=== PATIENT | female | born 1975 | race Caucasian/White ===

== ENCOUNTER → 2019-05-31 15:21 | Outpatient (CLI) | payer OTHER, SELFPAY ==
--- NOTE | ~2019-05-31 | US_ITS ---
EXAMINATION: US pelvic complete DATE: 05/31/2019 15:49 INDICATION: Enlarged uterus TECHNIQUE: Multiple transabdominal sonographic images of the pelvis were obtained. COMPARISON: 09/17/2017 FINDINGS: The uterus measures 11.2 x 5.9 x 7.7 cm, previously 12.4 x 6.0 x 7.8 cm. The endometrial co mplex measures 11 mm. The right ovary measures 3.4 x 2.4 x 2.7 cm. The left ovary measures 2.8 x 1.6 x 2.7 cm. There is normal vascular flow in the ovaries. There is no free fluid in the pelvis. IMPRESSION: 1. No sonographic correlate for the patient's symptoms. Reviewed, dictated and finalized at location A. ORDER CLERK
== END ==
PROVIDERS: PCP Internal Medicine; Visit Provider Obstetrics & Gynecology
DX: N85.2 Hypertrophy of uterus (principal)
CPT/HCPCS: 76856

== ENCOUNTER 2020-03-17 17:28 | Emergency (ER) | payer OTHER, SELFPAY ==
--- NOTE | 2020-03-17 17:33 | ED.GENADULT ---
HPI - General Adult General Chief complaint: Extremity Injury, Upper Stated complaint: R/hand injury Time Seen by Provider: 03/17/20 17:33 Source: patient Mode of arrival: ambulatory Limitations: no limitations History of Present Illness HPI narrative: 44-year-old female patient presents to the [facility] with complaints of wound to the right hand of the index finger. Patient states a week ago she was feeding her dog tree and he excellently cut it nipped at her finger. Patient states that she thought it was getting better however the last 2 days especially with recent cooking the finger pain has been getting worse and has what appears to be some swelling, redness and little discharge along the side of the nail of the right index finger. Denies any fevers, body aches or chills. Patient states that her last tetanus was in 2011 that she can remember. Patient states the dog is up-to-date on shots. Related Data Home Medications Medication Instructions Recorded Confirmed dulaglutide [Trulicity] 0.75 mg SUBCUT WEEKLY 03/17/20 03/17/20 pravastatin 20 mg PO DAILY 03/17/20 03/17/20 Allergies Allergy/AdvReac Type Severity Reaction Status Date / Time Penicillins Allergy Intermediate FACIAL Verified 03/17/20 17:56 SWELLING/HIVES progesterone Allergy Mild RASH Verified 03/17/20 17:56 iohexol Allergy Swelling Verified 03/17/20 18:01 [From contrast - CT, X-RAY] lisinopril Allergy Rash Verified 03/17/20 17:46 meloxicam [From Mobic] Allergy Swelling Verified 03/17/20 18:00 Review of Systems Review of Systems: Narrative: CONSTITUTIONAL: Denies fever, chills, or sweats. EYES: Denies visual changes, redness, or discharge. ENT: Denies rhinorrhea, congestion, sore throat, or otalgia. CARDIOVASCULAR: Denies chest pain, palpitations, or edema. RESPIRATORY: Denies cough or dyspnea. GASTROINTESTINAL: Denies abdominal pain, nausea, vomiting, or diarrhea. GENITOURINARY: Denies dysuria or hematuria. SKIN: Denies rash or itching. Positive wound to right index finger MUSCULOSKELETAL: Denies back pain, joint pain, or myalgia. NEUROLOGIC: Denies headache, numbness, or weakness. PSYCHIATRIC: Denies anxiety or depression. [facility] Past Medical History Medical History (Updated 03/17/20 @ 18:02 by MAXIMILIANO Love) Abnormal uterine bleeding Depression Hypertension Migraine Tachycardia Urinary tract infection Surgical History Surgical History (Updated 03/17/20 @ 18:02 by MAXIMILIANO Love) History of appendectomy Family History Family History (Updated 03/17/20 @ 18:03 by MAXIMILIANO Love) Other Diabetes mellitus Heart disease Hypertension Social History Social History (Updated 03/17/20 @ 18:02 by MAXIMILIANO Love) Alcohol intake: current Alcohol use details: Weekly alcohol consumption Comments At the time of my signature I agree with nursing past medical history, surgical, social, and family history. There is no relevant family history pertinent to the presenting complaint. Exam Narrative: Exam Narrative: GENERAL: Well-appearing, well-nourished, and in no acute distress. HEAD: Normocephalic, atraumatic. EYES: PERRLA and EOMI. ENT: Nares clear, no rhinorrhea or epistaxis. Mucous membranes moist. NECK: Supple. No lymphadenopathy CHEST: Clear to auscultation. No respiratory distress. HEART: Regular rate and rhythm. No murmur heard. Normal peripheral pulses. ABDOMEN: Soft, nontender, nondistended, normal active bowel sounds. EXTREMITIES: Normal range of motion. No edema. SKIN: Warm, dry, no rash. Patient has some swelling, tenderness and erythema noted along the lateral side of the nail on the right index finger. It does appear to have a little bit of yellow pus that was there but is not actively draining at this time. Patient has excellent range of motion to the fingers and good pulses present. NEURO: No focal deficits. Alert and oriented x3. Course Vital Signs Vital signs: Vital Signs
[2020-03-17 17:48] VITALS: BP 161/112; PULSE 68; RESP 20; TEMP 36.8; O2SAT 100
[2020-03-17] MEDS: TETANUS,DIPHTHERIA,AC PERTUSSIS ADULT (0.5 ML) BOOSTRIX IM (17:57)
== END 2020-03-17 18:10 | disposition home or self-care (01) ==
PROVIDERS: Emergency Provider Nurse Practitioner Family; PCP Internal Medicine
DX: L03.011 Cellulitis of right finger (principal); I10 Essential (primary) hypertension; Z23 Encounter for immunization
CPT/HCPCS: 90471; 90715; 99213; G0463

== ENCOUNTER → 2020-06-07 13:10 | Outpatient (CLI) | payer OTHER, SELFPAY ==
--- NOTE | ~2020-06-07 | MM_ITS ---
EXAMINATION: MM screening dinorah BI w rima HISTORY: Screening TECHNIQUE: Craniocaudal and mediolateral oblique 3-D tomosynthesis images were obtained and synthetic 2-D images were generated. CAD analysis was submitted and interpreted. COMPARISON: Comparison to multiple prior studies sequentially, with oldest reviewed study dated 2014 BREAST PARENCHYMAL COMPOSITION: There are scattered areas of fibroglandular density. FINDINGS: There is no evidence of suspicious mass, calcification, or architectural distortion to sugg est malignancy in either breast. There has been no suspicious interval change. IMPRESSION: 1. No mammographic evidence of malignancy. 2. Recommend routine screening mammography in one year. BI-RADS Category 1: Negative Reviewed, dictated and finalized at location A. T MARKETING MANAGER
== END ==
PROVIDERS: PCP Internal Medicine; Visit Provider Obstetrics & Gynecology Gynecology
DX: Z12.31 Encounter for screening mammogram for malignant neoplasm of breast (principal)
CPT/HCPCS: 77063; 77067

== ENCOUNTER → 2020-08-09 18:03 | Outpatient (CLI) | payer OTHER, SELFPAY ==
--- NOTE | ~2020-08-09 | XR_ITS ---
EXAMINATION: XR chest 2V 08/09/2020 18:55 INDICATION: Cough PROCEDURE: 2 view chest COMPARISON: No prior studies for comparison. FINDINGS: The lungs are clear. The cardiomediastinal silhouette is within normal limits. There are no pleural effusions. There is no pneumothorax suspected. IMPRESSION: 1: NO ACUTE CARDIOPULMONARY DISEASE. Reviewed, dictated and finalized at location A.
== END ==
PROVIDERS: PCP Internal Medicine; Visit Provider Internal Medicine
DX: R05 Cough (principal)
CPT/HCPCS: 71046

== ENCOUNTER → 2021-06-28 16:07 | Outpatient (CLI) | payer OTHER, SELFPAY ==
--- NOTE | ~2021-06-28 | MM_ITS ---
EXAMINATION: MM screening dinorah BI w rima HISTORY: Screening TECHNIQUE: Craniocaudal and mediolateral oblique 3-D tomosynthesis images were obtained and synthetic 2-D images were generated. CAD analysis was submitted and interpreted. COMPARISON: Comparison to multiple prior studies sequentially, with oldest reviewed study dated 05/03. BREAST PARENCHYMAL COMPOSITION: The breasts are heterogeneously dense, which may obscure small masses . FINDINGS: There is no evidence of suspicious mass, calcification, or architectural distortion to sugg est malignancy in either breast. There has been no suspicious interval change. IMPRESSION: 1. No mammographic evidence of malignancy. 2. Recommend routine screening mammography in one year. BI-RADS Category 1: Negative Reviewed, dictated and finalized at location A. ITY CONTROL ASSESSOR
== END ==
PROVIDERS: PCP Internal Medicine; Visit Provider Nurse Practitioner
DX: Z12.31 Encounter for screening mammogram for malignant neoplasm of breast (principal)
CPT/HCPCS: 77063; 77067

== ENCOUNTER → 2021-07-02 13:40 | Outpatient (CLI) | payer OTHER, SELFPAY ==
--- NOTE | ~2021-07-02 | US_ITS ---
EXAMINATION: US pelvic complete DATE: 07/02/2021 14:33 INDICATION: Right lower quadrant pain Comparison:Pelvic pain TECHNIQUE: Multiple transabdominal and endovaginal sonographic images of the pelvis performed. FINDINGS: The uterus measures 11.2 x 5.9 x 6.9 cm. The endometrial complex measures 7 mm. The right ovary measures 2.2 x 1.4 x 2 cm and the left ovary measures 2.4 x 1.3 x 2 cm. There are sm all follicles in each ovary. Normal doppler signal in both ovaries. There is no free fluid in the pelvis. There are no abnormal masses seen on either side. IMPRESSION: 1. Unremarkable pelvic ultrasound. Reviewed, dictated and finalized at location B.
== END ==
PROVIDERS: Visit Provider Obstetrics & Gynecology Gynecology
DX: R10.2 Pelvic and perineal pain (principal)
CPT/HCPCS: 76856

== ENCOUNTER → 2021-10-04 09:10 | Outpatient (CLI) | payer OTHER, SELFPAY ==
--- NOTE | ~2021-10-04 | US_ITS ---
US breast BI complete INDICATION: Dense breasts. TECHNIQUE: Dedicated complete bilateral breast ultrasound including all 4 quadrants and the subareola r locations. COMPARISON: Mammogram dated 06/28/2021 FINDINGS: Right breast: At 3:00, 5 cm from the nipple there is a an irregular shaped hypoechoic mass with antip arallel configuration measuring 4 x 4 x 3 mm. No internal vascularity. There is posterior shadowing. At 5:00, 3 cm from the nipple there is a 5 mm cyst. Left breast: At 1:00, 5 cm from the nipple there is a 5 mm cyst. Also at this location there is a 7 m m cyst. At 2:00, 7 cm from the nipple there is a 5 mm cyst. IMPRESSION: 1: Slightly irregular hypoechoic right breast mass at 3:00, 5 cm from the nipple with antiparallel co nfiguration and posterior shadowing measuring 4 mm. No corresponding abnormality is identified by dinorah mography. BI-RADS CATEGORY 4-SUSPICIOUS ABNORMALITY RECOMMENDATION: Ultrasound-guided right breast biopsy recommended. Reviewed, dictated and finalized at location A. IMPRESSION: 1: Slightly irregular hypoechoic right breast mass at 3:00, 5 cm from the nippl e with antiparallel configuration and posterior shadowing measuring 4 mm. No co rresponding abnormality is identified by mammography. BI-RADS CATEGORY 4-SUSPICIOUS ABNORMALITY RECOMMENDATION: Ultrasound-guided right breast biopsy recommended.
== END ==
PROVIDERS: PCP Internal Medicine; Visit Provider Nurse Practitioner
DX: R92.8 Other abnormal and inconclusive findings on diagnostic imaging of breast (principal)
CPT/HCPCS: 76641

== ENCOUNTER 2022-03-11 11:39 | Emergency (ER) | payer OTHER, SELFPAY ==
[2022-03-11 12:17] VITALS: BP 120/94; PULSE 86; RESP 18; TEMP 36.6; O2SAT 100
--- NOTE | 2022-03-11 13:07 | ED.URI ---
HPI - URI/Sore Throat General Chief Complaint: Upper Respiratory Infection Stated Complaint: congestion,cough Time Seen by Provider: 03/11/22 13:07 Source: patient and RN notes reviewed Mode of arrival: ambulatory Limitations: no limitations History of Present Illness HPI Narrative: 46-year-old female presenting for complaint of sinus congestion and drainage, fatigue, left lymph node swelling, cough, and bilateral ear pressure for 2 days. Endorses chills. She is not taking anything for symptoms. Denies shortness of breath, wheezing, nausea, vomiting diarrhea. 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 MD elicited complaint: cough Related Data Home Medications Medication Instructions Recorded Confirmed dulaglutide 0.75 mg/0.5 mL 0.75 mg subcut WEEKLY 03/17/20 03/11/22 subcutaneous pen injector (Trulicity) pravastatin 20 mg tablet 20 mg PO DAILY 03/17/20 03/11/22 B cplx 4-vit D3 1,750 unit-C 60 1 tablet PO DAILY 03/11/22 03/11/22 mg-folic acid 1 mg-zinc 12.5 mg tablet amlodipine 2.5 mg tablet 2.5 mg PO DAILY 03/11/22 03/11/22 bupropion HCl 75 mg tablet 75 mg PO DAILY 03/11/22 03/11/22 fish [id number] C-vit E 2,000 1 g PO DAILY 03/11/22 03/11/22 mg-650 mg-12 mg/2.5 g emulsion packt nebivolol 2.5 mg tablet 5 mg PO DAILY 03/11/22 03/11/22 Allergies Allergy/AdvReac Type Severity Reaction Status Date / Time Penicillins Allergy Intermediate FACIAL Verified 03/11/22 12:49 SWELLING/HIVES progesterone Allergy Mild RASH Verified 03/11/22 12:49 iohexol Allergy Swelling Verified 03/11/22 12:49 [From contrast - CT, X-RAY] lisinopril Allergy Rash Verified 03/11/22 12:49 meloxicam [From Mobic] Allergy Swelling Verified 03/11/22 12:49 Review of Systems Review of Systems: ROS per HPI PMFSH Past Medical History Medical History Abnormal uterine bleeding Depression Hypertension Migraine Tachycardia Urinary tract infection Surgical History Surgical History History of appendectomy Family History Family History Other Diabetes mellitus Heart disease Hypertension Social History Social History Alcohol intake: current Alcohol use details: Weekly alcohol consumption Exam Narrative: GENERAL: Ill-appearing, nontoxic EYES: PERRLA, conjunctivae clear ENT: Mucous membranes moist. TMs pearly wilcox with dull light reflex bilaterally; no tragal tenderness. Oropharynx erythematous without lesions or exudate, no drooling, no hoarseness, no trismus, uvula midline. NECK: Supple. Left anterior cervical lymphadenopathy CHEST: Clear to auscultation, breath sounds equal. HEART: Regular rate and rhythm. No murmur heard. SKIN: Warm, dry, no rash. NEURO: Alert and oriented x3. PSYCH: Normal mood and affect Course Course Emergency Course: Patient is aware of diagnosis, understands and agrees to treatment plan. Anticipatory guidance given. Patient agrees to follow-up as directed and is aware of reasons to seek care at the emergency department. Portions of this record may have been created with voice recognition software Level of Care: Express Care Visit Vital Signs Vital signs: Vital Signs Temperature 97.8 F 03/11/22 12:17 Pulse Rate 86 03/11/22 12:17 Respiratory Rate 18 03/11/22 12:17 Blood Pressure 120/94 H 03/11/22 12:17 Pulse Oximetry 100 03/11/22 12:17 Oxygen Delivery Room Air 03/11/22 12:17 Temperature 97.8 F 03/11/22 12:17 Pulse Rate 86 03/11/22 12:17 Respiratory Rate 18 03/11/22 12:17 Blood Pressure 120/94 H 03/11/22 12:17 Pulse Oximetry 100 03/11/22 12:17 Oxygen Delivery Room Air 03/11/22 12:17 reviewed MDM - URI/Sore Throat MDM Narrative Medical decision making narrative: KARAN positi
== END 2022-03-11 13:30 | disposition home or self-care (01) ==
PROVIDERS: Emergency Provider Nurse Practitioner Family; PCP Internal Medicine
DX: U07.1 COVID-19 (principal); I10 Essential (primary) hypertension; F32.A Depression, unspecified
CPT/HCPCS: 87081; 87426; 87804; 87880; 99213; C9803; G0463

== ENCOUNTER 2022-08-07 16:21 | Emergency (ER) | payer OTHER, SELFPAY ==
[2022-08-07 16:34] VITALS: BP 107/77; PULSE 56; RESP 16; TEMP 36.4; O2SAT 98
--- NOTE | 2022-08-07 16:54 | ED.GENADULT ---
HPI - General Adult General Chief complaint: Ear Stated complaint: bilateral ear pain Time Seen by Provider: 08/07/22 16:40 Source: patient, RN notes reviewed and old records reviewed Mode of arrival: ambulatory Limitations: no limitations History of Present Illness HPI narrative: 47-year-old female who presents to [facility] with complaints of 3 day history bilateral ear discomfort with some itchiness and pain to her right ear which extends down her jaw with some tragal tenderness voiced on examination. Patient reports that she has some sore throat but is more scratchy type of discomfort, denies any fevers, chills or sweats or any body aches. MD complaint: ear pain, scratchy throat, right facial myalgia Onset (ago): day(s) (3) Severity scale (1-10): 6 Quality: aching Treatments prior to arrival: other (Tylenol) Related Data Home Medications Medication Instructions Recorded Confirmed pravastatin 20 mg tablet 20 mg PO DAILY 03/17/20 08/07/22 B cplx 4-vit D3 1,750 unit-C 60 1 tablet PO DAILY 03/11/22 08/07/22 mg-folic acid 1 mg-zinc 12.5 mg tablet amlodipine 2.5 mg tablet 2.5 mg PO DAILY 03/11/22 08/07/22 bupropion HCl 75 mg tablet 75 mg PO DAILY 03/11/22 08/07/22 fish [id number] C-vit E 2,000 1 g PO DAILY 03/11/22 08/07/22 mg-650 mg-12 mg/2.5 g emulsion packt nebivolol 2.5 mg tablet 5 mg PO DAILY 03/11/22 08/07/22 Allergies Allergy/AdvReac Type Severity Reaction Status Date / Time Penicillins Allergy Intermediate FACIAL Verified 08/07/22 16:44 SWELLING/HIVES progesterone Allergy Mild RASH Verified 08/07/22 16:44 iohexol Allergy Swelling Verified 08/07/22 16:44 [From contrast - CT, X-RAY] lisinopril Allergy Rash Verified 08/07/22 16:44 meloxicam [From Mobic] Allergy Swelling Verified 08/07/22 16:44 Review of Systems Review of Systems: CONSTITUTIONAL: Denies malaise, chills, sweats, or fever. EYES: Denies visual changes, redness, or discharge. ENT: Reports rhinorrhea, congestion, sinus pain,bilateral otalgia right greater that left with pain into jaw and sore throat. CARDIOVASCULAR: Denies chest pain, palpitations, or edema. RESPIRATORY: Reports no cough.? Denies dyspnea. GASTROINTESTINAL: Denies abdominal pain, nausea, vomiting, diarrhea SKIN: Denies rash or itching. MUSCULOSKELETAL: Denies myalgia. NEUROLOGIC: Denies headache. All systems reviewed & are unremarkable except as noted in HPI and below PMFSH Past Medical History Medical History Abnormal uterine bleeding Depression Hypertension Migraine Tachycardia Urinary tract infection Surgical History Surgical History History of appendectomy Family History Family History Other Diabetes mellitus Heart disease Hypertension Social History Social History (Updated 08/10/22 @ 10:49 by Josefina Duran NP) Smoking status: Never smoker Alcohol intake: current Alcohol use details: Weekly alcohol consumption Comments At time of signature, agree with nursing past medical, surgical, social and family history. There is no relevant family history pertinent to the presenting complaint Exam Narrative: GENERAL: Well-appearing, well-nourished, and in no acute distress. HEAD: Normocephalic EYES: PERRLA, conjunctivae clear ENT: Nares clear, turbinates edematous and erythematous, clear discharge. Mucous membranes moist. TM pearly wilcox with dull light reflex bilaterally; righttragal tenderness.right ear canal excoriated, Oropharynx erythematous without lesions. Tonsils enlarged no redness noted and without exudate, no drooling, no hoarseness, no trismus, uvula midline. NECK: Supple. No lymphadenopathy CHEST: Clear to auscultation, breath sounds equal. No wheezing, rhonchi, rales, or stridor. No respiratory distress, speaks in full sentences
== END 2022-08-07 17:20 | disposition home or self-care (01) ==
PROVIDERS: Emergency Provider Registered Nurse; PCP Internal Medicine
DX: H60.91 Unspecified otitis externa, right ear (principal); R51.9 Headache, unspecified; I10 Essential (primary) hypertension; F32.A Depression, unspecified
CPT/HCPCS: 87081; 87880; 99213; G0463

== ENCOUNTER → 2023-01-14 16:01 | Outpatient (CLI) | payer OTHER, SELFPAY ==
--- NOTE | ~2023-01-14 | MM_ITS ---
EXAMINATION: MM screening dinorah BI w rima HISTORY: Screening mammogram TECHNIQUE: Craniocaudal and mediolateral oblique 3-D tomosynthesis images were obtained and synthetic 2-D images were generated. CAD analysis was submitted and interpreted. COMPARISON: 10/04/2021 bilateral complete breast ultrasound examination 06/28/2021, 06/07/2020, 10/13/2018 bilateral screening mammogram examinations BREAST PARENCHYMAL COMPOSITION: There are scattered areas of fibroglandular density. FINDINGS: There is a biopsy marker in the right breast; history of benign breast biopsy in November 2. There is no evidence of suspicious mass, calcification, or architectural distortion to suggest mal ignancy in either breast. There has been no suspicious interval change. IMPRESSION: 1. No mammographic evidence of malignancy. 2. Recommend routine screening mammography in one year. BI-RADS Category 1: Negative Reviewed, dictated and finalized at location A.
== END ==
PROVIDERS: PCP Internal Medicine; Visit Provider Nurse Practitioner
DX: Z12.31 Encounter for screening mammogram for malignant neoplasm of breast (principal)
CPT/HCPCS: 77063; 77067

== ENCOUNTER 2023-03-01 08:26 | Emergency (ER) | payer OTHER, SELFPAY ==
[2023-03-01 08:38] VITALS: BP 122/81; PULSE 66; RESP 20; TEMP 36.7; O2SAT 98
[2023-03-01 08:55] VITALS: BP 115/80; PULSE 55; RESP 17; O2SAT 97
[2023-03-01 09:10] LABS: Basophils Percent Auto 0.4 % (0.2-1.2); Eosinophils Percent Auto 0.6 % (0-4.4); Hematocrit 40.4 % (37.0-47.0); Immature Granulocyte Absolute 0.01 K/mm3 (0.00-0.031); Immature Granulocyte Percent A 0.1 % (0-0.5); Lymphocytes Absolute Auto 2.35 K/mm3 (0.9-3.2); Mean Corpuscular HGB Conc 32.2 g/dl (32-36); Mean Corpuscular Hemoglobin 29.3 pg (26-34); Mean Corpuscular Volume 91.2 fl (80-100); Mean Platelet Volume 9.7 fl (7.4-10.4); Monocytes Absolute Auto 0.4 K/mm3 (0.1-0.6); Monocytes Percent Auto 5.8 % (2.6-8.5); Neutrophils Absolute Auto 4.3 K/mm3 (1.3-6.7); Neutrophils Percent Auto 60.1 % (45.5-73.1); Platelet Count Result 271 k/mm3 (150-375); Red Blood Count 4.43 M/mm3 (4.2-5.4); Red Cell Distribution Width 12.9 % (11.5-14.5); White Blood Count 7.1 K/mm3 (4.5-10.0)
[2023-03-01 09:18] LABS: Anion Gap 11 mmol/L (8-16); Blood Urea Nitrogen 18 mg/dL (7-17); Calcium 9.2 mg/dL (8.4-10.2); Carbon Dioxide 24 mmol/L (22-30); Chloride 105 mmol/L (98-107); Estimated CRCL calculation 82 ml/min; Estimated Glomerular Filt Rate > 60; Glucose 89 mg/dL (65-110); Potassium 4.1 mmol/L (3.4-5.0); Sodium 140 mmol/L (137-145)
[2023-03-01 09:35] VITALS: BP 101/67; PULSE 57; RESP 17; O2SAT 97
[2023-03-01 10:15] VITALS: BP 104/70; PULSE 60; RESP 15; O2SAT 98
--- NOTE | 2023-03-01 11:26 | ED.FEMALEGU ---
HPI - Female Genitourinary General Chief complaint: Vaginal Bleeding Stated complaint: abnormal vaginal bleeding Time Seen by Provider: 03/01/23 08:47 History of Present Illness HPI Narrative: Patient with history of heavy uterine bleeding presents here with heavy uterine bleeding, she is being followed by her MEAL MILLER, she is unable to tolerate hormonal therapy, she started having severe bleeding yesterday which continued today so came in to be checked out. Since arrival here bleeding seems to have subsided Related Data Home Medications Medication Instructions Recorded Confirmed pravastatin 20 mg tablet 20 mg PO DAILY 03/17/20 08/07/22 B cplx 4-vit D3 1,750 unit-C 60 1 tablet PO DAILY 03/11/22 08/07/22 mg-folic acid 1 mg-zinc 12.5 mg tablet amlodipine 2.5 mg tablet 2.5 mg PO DAILY 03/11/22 08/07/22 bupropion HCl 75 mg tablet 75 mg PO DAILY 03/11/22 08/07/22 fish [id number] C-vit E 2,000 1 g PO DAILY 03/11/22 08/07/22 mg-650 mg-12 mg/2.5 g emulsion packt nebivolol 2.5 mg tablet 5 mg PO DAILY 03/11/22 08/07/22 Allergies Allergy/AdvReac Type Severity Reaction Status Date / Time Penicillins Allergy Intermediate FACIAL Verified 03/01/23 08:42 SWELLING/HIVES progesterone Allergy Mild RASH Verified 03/01/23 08:42 iohexol Allergy Swelling Verified 03/01/23 08:42 [From contrast - CT, X-RAY] lisinopril Allergy Rash Verified 03/01/23 08:42 meloxicam [From Mobic] Allergy Swelling Verified 03/01/23 08:42 Review of Systems Review of Systems: CONST: No fever. HEENT: No sore throat C/V: No chest pain RESP: No cough GI: Some cramping : Heavy vaginal bleed M/S: No joint pain. SKIN: No rash. NEURO: [No headache or focal numbness or weakness] PSYCH: [No depression] [facility] Past Medical History Medical History Abnormal uterine bleeding Depression Hypertension Migraine Tachycardia Urinary tract infection Surgical History Surgical History History of appendectomy Family History Family History Other Diabetes mellitus Heart disease Hypertension Social History Social History (Updated 08/10/22 @ 10:49 by Josefina Duran NP) Smoking status: Never smoker Alcohol intake: current Alcohol use details: Weekly alcohol consumption Exam Narrative: EXAMINATION OF ORGAN SYSTEMS/BODY AREAS: Constitutional: Vital signs per nursing GENERAL:[No acute distress, non-toxic appearing.] HEAD: Normal with no signs of head trauma. EYES: EOMI, conjunctiva normal ENT: Hearing grossly intact LUNGS: Nonlabored breathing. HEART: [Regular rate and rhythm] ABD: [Soft], [nontender to palpation] : Some blood in the vagina vault without severe hemorrhage EXT: Normal range of motion SKIN: [No rashes or lesions.] NEURO: [Alert and oriented x 3. No gross focal sensory or strength deficits.] Ambulating with normal stable gait PSYCH: Normal affect Course Vital Signs Vital signs: Vital Signs Temperature 98.1 F 03/01/23 08:38 Pulse Rate 66 03/01/23 08:38 Respiratory Rate 20 03/01/23 08:38 Blood Pressure 122/81 03/01/23 08:38 Pulse Oximetry 98 03/01/23 08:38 Oxygen Delivery Room Air 03/01/23 08:38 Temperature 98.1 F 03/01/23 08:38 Pulse Rate 60 03/01/23 10:15 Respiratory Rate 15 03/01/23 10:15 Blood Pressure 104/70 03/01/23 10:15 Pulse Oximetry 98 03/01/23 10:15 Oxygen Delivery Room Air 03/01/23 08:38 MDM - Female Genitourinary MDM Narrative Medical decision making narrative: 47-year-old female with history of menorrhagia, presents here due to concern for heavy bleeding, she is well-appearing here, ambulating with steady gait, with normal vital signs, on pelvic exam no severe hemorrhage, hemoglobin here is stable, case discussed with MEAL MILLER who recommended TXA and ibuprof
== END 2023-03-01 10:17 | disposition home or self-care (01) ==
PROVIDERS: Emergency Provider Emergency Medicine; PCP Internal Medicine
DX: N93.8 Other specified abnormal uterine and vaginal bleeding (principal); I10 Essential (primary) hypertension
CPT/HCPCS: 36415; 80048; 81025; 85025; 99283

== ENCOUNTER 2023-10-28 10:11 | Emergency (ER) | payer OTHER, SELFPAY ==
[2023-10-28 10:23] VITALS: BP 139/92; PULSE 68; RESP 14; TEMP 36.4; O2SAT 98
--- NOTE | 2023-10-28 10:28 | ED.EAR ---
HPI - Ear Problem General Chief complaint: Ear Stated complaint: ear pain Time Seen by Provider: 10/28/23 10:29 Source: patient, RN notes reviewed and old records reviewed Mode of arrival: ambulatory Limitations: no limitations History of Present Illness HPI Narrative: 48-year-old female presents to the [facility] with complaints of left ear pain since landing from her trip to [place] yesterday morning. Did take 1 dose of Xyzal and some ibuprofen with no relief. Related Data Home Medications Medication Instructions Recorded Confirmed pravastatin 20 mg tablet 20 mg PO DAILY 03/17/20 10/28/23 B cplx 4-vit D3 1,750 unit-C 60 1 tablet PO DAILY 03/11/22 10/28/23 mg-folic acid 1 mg-zinc 12.5 mg tablet amlodipine 2.5 mg tablet 2.5 mg PO DAILY 03/11/22 10/28/23 bupropion HCl 75 mg tablet 75 mg PO DAILY 03/11/22 10/28/23 fish arp-ysqhb0-vac C-vit E 2,000 1 g PO DAILY 03/11/22 10/28/23 mg-650 mg-12 mg/2.5 g emulsion packt nebivolol 2.5 mg tablet 5 mg PO DAILY 03/11/22 10/28/23 Allergies Allergy/AdvReac Type Severity Reaction Status Date / Time Penicillins Allergy Intermediate FACIAL Verified 10/28/23 10:37 SWELLING/HIVES progesterone Allergy Mild RASH Verified 10/28/23 10:37 iohexol Allergy Swelling Verified 10/28/23 10:37 [From contrast - CT, X-RAY] lisinopril Allergy Rash Verified 10/28/23 10:37 meloxicam [From Mobic] Allergy Swelling Verified 10/28/23 10:37 Review of Systems Review of Systems: All systems reviewed & are unremarkable except as noted in HPI and below Constitutional: Constitutional: Reports no additional constitutional complaints Eyes: Eyes: Reports no additional eye complaints ENT: Reports as per HPI, Denies ear discharge and Reports otalgia (Left) Cardiovascular: Cardiovascular: Reports no additional cardiovascular complaints, Denies chest pain and Denies dyspnea Respiratory: Respiratory: Reports no additional respiratory complaints, Denies chest congestion, Denies cough and Denies dyspnea Gastrointestinal: Gastrointestinal: Reports no additional gastrointestinal complaints, Denies abdominal pain, Denies nausea and Denies vomiting Musculoskeletal: Musculoskeletal: Reports no additional musculoskeletal complaints Integumentary/Breasts: Skin/Breast: Reports system reviewed and no additional complaints, except as docu Neurologic: Reports system reviewed and no additional complaints, except as documented Psychiatric: Psychiatric: Reports no additional psychiatric complaints Allergic/Immunologic: Allergic/Immunologic: Reports no additional allergic/immunologic complaints PMFSH Past Medical History Medical History Abnormal uterine bleeding Depression Hypertension Migraine Tachycardia Urinary tract infection Surgical History Surgical History History of appendectomy Family History Family History Other Diabetes mellitus Heart disease Hypertension Social History Social History Smoking status: Never smoker Alcohol intake: current Alcohol use details: Weekly alcohol consumption Comments At the time of my signature, I reviewed and agree with the nursing past medical, surgical, social, and family history. There is no relevant family history pertinent to the patient complaint. Exam Const: General: cooperative, healthy appearing, comfortable, no acute distress, well developed, alert and well nourished Nutritional Appearance: well nourished Orientation/consciousness: patient oriented x3 Limitations: no limitations HENMT: Head: normal to inspection Ears: hearing grossly normal bilaterally, external ears normal, TM normal on the right, EAC's normal, mastoids normal, no periauricular adenopathy and TM abnormal bulging on the left and wth effusion s
== END 2023-10-28 10:45 | disposition home or self-care (01) ==
PROVIDERS: Emergency Provider Nurse Practitioner; PCP Internal Medicine
DX: H65.02 Acute serous otitis media, left ear (principal); I10 Essential (primary) hypertension; F32.A Depression, unspecified
CPT/HCPCS: 99213; G0463

== ENCOUNTER 2024-03-01 09:30 | Emergency (ER) | payer OTHER, SELFPAY ==
[2024-03-01 09:38] VITALS: BP 117/67; PULSE 90; RESP 18; TEMP 36.5; O2SAT 100
[2024-03-01 09:39] VITALS: BP 117/67; PULSE 90; RESP 18; TEMP 36.5; O2SAT 100
--- NOTE | 2024-03-01 09:49 | ED.SKABFB ---
HPI - Skin/Abscess/Foreign Bdy General Chief complaint: Skin/Abscess/Foreign Body Stated complaint: LT Foot infected toe Time Seen by Provider: 03/01/24 09:50 Source: patient, RN notes reviewed and old records reviewed Mode of arrival: ambulatory Limitations: no limitations History of Present Illness HPI narrative: patient presents with complaints of left 3rd toe swelling and tenderness. She reports that she noticed some pain about a week ago after wearing ill-fitting shoes. She says for about 4 days she has noticed increased redness and swelling. She has been soaking the affected digit with moderate relief. The worst of the swelling and tenderness is surrounding the nail bed. There is no active drainage. She denies any fever, chills, sweats. She voices no other concerns or complaints at this time Related Data Home Medications Medication Instructions Recorded Confirmed B cplx 4-vit D3 1,750 unit-C 60 1 tablet PO DAILY 03/11/22 03/01/24 mg-folic acid 1 mg-zinc 12.5 mg tablet amlodipine 2.5 mg tablet 2.5 mg PO DAILY 03/11/22 03/01/24 bupropion HCl 75 mg tablet 75 mg PO DAILY 03/11/22 03/01/24 fish imh-klziq1-ojb C-vit E 2,000 1 g PO DAILY 03/11/22 03/01/24 mg-650 mg-12 mg/2.5 g emulsion packt nebivolol 2.5 mg tablet 5 mg PO DAILY 03/11/22 03/01/24 metformin 500 mg tablet,extended 500 mg PO DAILY 03/01/24 03/01/24 release 24 hr Allergies Allergy/AdvReac Type Severity Reaction Status Date / Time iohexol Allergy Severe Anaphylaxis Verified 03/01/24 09:53 [From contrast - CT, X-RAY] meloxicam [From Mobic] Allergy Intermediate Swelling Verified 03/01/24 09:38 Penicillins Allergy Intermediate FACIAL Verified 03/01/24 09:38 SWELLING/HIVES lisinopril Allergy Mild Rash Verified 03/01/24 09:38 progesterone Allergy Mild RASH Verified 03/01/24 09:38 Review of Systems Review of Systems: All systems reviewed & are unremarkable except as noted in HPI and below Constitutional: Constitutional: Reports no additional constitutional complaints ENT: Reports system reviewed and no additional complaints, except as documented Cardiovascular: Cardiovascular: Reports no additional cardiovascular complaints Respiratory: Respiratory: Reports no additional respiratory complaints Gastrointestinal: Gastrointestinal: Reports no additional gastrointestinal complaints Musculoskeletal: Musculoskeletal: Reports no additional musculoskeletal complaints and Reports as per HPI Integumentary/Breasts: Skin/Breast: Reports system reviewed and no additional complaints, except as docu and Reports as per HPI [facility] Past Medical History Medical History Abnormal uterine bleeding Depression Hypertension Migraine Tachycardia Urinary tract infection Surgical History Surgical History History of appendectomy Family History Family History Other Diabetes mellitus Heart disease Hypertension Social History Social History Smoking status: Never smoker Alcohol intake: current Alcohol use details: Weekly alcohol consumption Comments At the time of my signature, I reviewed and agree with the nursing past medical, surgical, social, and family history. There is no relevant family history pertinent to the patient complaint. Exam Const: General: cooperative, no acute distress, alert and awake Orientation/consciousness: oriented to person, oriented to place and oriented to time HENMT: Head: normal to inspection Resp: Effort & Inspection: normal respiratory effort and able to speak in complete sentences Auscultation: clear to auscultation bilaterally, no crackles, no rales, no rhonchi and no wheezes Cardio: Palpation: normal PMI Rate: regular rate Rhythm: regular rhythm Heart sounds: S1 normal heart sound present and S2 normal heart sound present Neuro: General: oriented to person, oriented to place and oriented to time Cranial nerves: Yes CN's II-XII intact bilaterally Extrem: Ankle/foot/toe images: 1. redness, swelling, tenderness Psych: Appearance: grossly normal Thought process: Normal thought process present Insight: Good insight present (Psych) Judgement: Good judgement present (Psych) Course Course Level of Care: Express Care Visit Vital Signs Vital signs: Vital Signs Temperature 97.7 F 03/01/24 09:38 Pulse Rate 90 03/01/24 09:38 Respiratory Rate 18 03/01/24 09:38 Blood Pressure 117/67 11/11/24 09:38 Pulse Oximetry 100 03/01/24 09:38 Oxygen Delivery Room Air 03/01/24 09:38 Temperature 97.7 F 03/01/24 09:39 Pulse Rate 90 03/01/24 09:39 Respiratory Rate 18 03/01/24 09:39 Blood Pressure 117/67 03/01/24 09:39 Pulse Oximetry 100 03/01/24 09:39 Oxygen Delivery Room Air 03/01/24 09:39 Reviewed MDM - Skin/Abscess/Foreign Bdy MDM Narrative Medical decision making narrative: left 3rd toe with cellulitic changes surrounding the nail bed, no drainable paronychia noted. Start doxycycline. Follow with primary care provider. Patient nontoxic appearing Discharge instructions reviewed with patient, as well as provided in writing per nursing staff. The instructions also include specific and strict return/GO TO THE ER as well as f/u information. All questions have been answered, and the patient deny any further questions with discharge and discharge plan. Some parts of this dictation were generated by voice recognition software and may contain typographical and/or grammatical inaccuracies. Differential Diagnosis Differential diagnosis: Likely abscess of skin or subcutaneous tissue, cellulitis and insect bites Medical Records Attestation: I reviewed the patient's medical records. Discharge Plan Discharge Clinical Impression: Cellulitis Qualifiers: Site of cellulitis: extremity Site of cellulitis of extremity: lower extremity Laterality: left Qualified Code(s): L03.116 - Cellulitis of left lower limb Patient Disposition: Home, Self-Care Condition: Stable Instructions: Antibiotic Form, Cellulitis (ED) Additional Instructions: take medications as prescribed. Follow with primary care provider. Emergency department for new or worse symptoms Patient Language: Citizen Of [place] Prescriptions: New doxycycline hyclate 100 mg capsule 100 mg PO BID 10 Days Qty: 20 0RF No Action amlodipine 2.5 mg tablet 2.5 mg PO DAILY bupropion HCl 75 mg Tablet 75 mg PO DAILY nebivolol 2.5 mg Tablet 5 mg PO DAILY B cmplx 4-vit T6-E-givog-zinc 1,750-60-1-12.5 lexx-tx-gf-mg Tablet 1 tablet PO DAILY fish cde-tfvzy-1-vit C-vit E 2,000-650-12 mg/2.5 gram Emulsion In Packet 1 g PO DAILY metformin 500 mg tablet extended release 24 hr 500 mg PO DAILY Follow-up/Referrals: Lotus,Hari Matson MD [Primary Care Provider] - 2 Weeks Time of Disposition: 09:56
== END 2024-03-01 09:58 | disposition home or self-care (01) ==
PROVIDERS: Emergency Provider Nurse Practitioner Family; PCP Internal Medicine
DX: L03.116 Cellulitis of left lower limb (principal); I10 Essential (primary) hypertension; F32.A Depression, unspecified
CPT/HCPCS: 99213; G0463

== ENCOUNTER 2024-04-16 18:36 | Emergency (ER) | payer OTHER, SELFPAY ==
[2024-04-16 18:49] VITALS: BP 128/72; PULSE 63; RESP 18; TEMP 36.6; O2SAT 100
--- NOTE | 2024-04-16 18:59 | ED.EAR ---
HPI - Ear Problem General Chief complaint: Ear Stated complaint: Thinks has ear infection Time Seen by Provider: 04/16/24 18:59 Source: patient, RN notes reviewed and old records reviewed Mode of arrival: ambulatory Limitations: no limitations History of Present Illness HPI Narrative: 48-year-old female presents to the [facility] with complaints of left ear pain for 2 days, worse, reports it is very sharp pain that started last night. Has taken ibuprofen. Related Data Home Medications ?Medication ?Instructions ?Recorded ?Confirmed ?Last Taken ?Type B cplx 4-vit D3 1,750 unit-C 60 1 tablet PO DAILY 03/11/22 03/01/24 Unknown History mg-folic acid 1 mg-zinc 12.5 mg tablet amlodipine 2.5 mg tablet 2.5 mg PO DAILY 03/11/22 03/01/24 Unknown History bupropion HCl 75 mg tablet 75 mg PO DAILY 03/11/22 03/01/24 Unknown History fish cli-ifgie1-lrk C-vit E 2,000 1 g PO DAILY 03/11/22 03/01/24 Unknown History mg-650 mg-12 mg/2.5 g emulsion packt nebivolol 2.5 mg tablet 5 mg PO DAILY 03/11/22 03/01/24 Unknown History metformin 500 mg tablet,extended 500 mg PO DAILY 03/01/24 03/01/24 Unknown History release 24 hr Allergies Allergy/AdvReac Type Severity Reaction Status Date / Time iohexol (From contrast - CT, Allergy Severe Anaphylaxis Verified 03/01/24 09:53 X-RAY) meloxicam (From Mobic) Allergy Intermediate Swelling Verified 03/01/24 09:38 Penicillins Allergy Intermediate FACIAL Verified 03/01/24 09:38 SWELLING/HIVES lisinopril Allergy Mild Rash Verified 03/01/24 09:38 progesterone Allergy Mild RASH Verified 03/01/24 09:38 Review of Systems Review of Systems: All systems reviewed & are unremarkable except as noted in HPI and below Constitutional: Constitutional: Reports no additional constitutional complaints ENT: Reports as per HPI and Reports otalgia (Left) Cardiovascular: Cardiovascular: Reports no additional cardiovascular complaints, Denies chest pain and Denies dyspnea Respiratory: Respiratory: Reports no additional respiratory complaints, Denies chest congestion, Denies cough and Denies dyspnea Musculoskeletal: Musculoskeletal: Reports no additional musculoskeletal complaints Integumentary/Breasts: Skin/Breast: Reports system reviewed and no additional complaints, except as docu [facility] Past Medical History Medical History Depression Urinary tract infection Abnormal uterine bleeding Tachycardia Migraine Hypertension Surgical History Surgical History History of appendectomy Family History Family History Other Diabetes mellitus Heart disease Hypertension Social History Social History Smoking status: Never smoker Alcohol intake: current Alcohol use details: Weekly alcohol consumption Comments At the time of my signature, I reviewed and agree with the nursing past medical, surgical, social, and family history. There is no relevant family history pertinent to the patient complaint. Exam Const: General: cooperative, healthy appearing, comfortable, no acute distress, well developed, alert and well nourished Nutritional Appearance: well nourished Orientation/consciousness: patient oriented x3 Limitations: no limitations HENMT: Head: normal to inspection Ears: hearing grossly normal bilaterally, external ears normal and TM abnormal bulging bilateral, erythematous on the left and with fluid behind the TM on the right Face/Nose/Sinus: Normal external nose present, Normal nares present, normal facial exam and face symmetric Face and sinus: normal facial exam and face symmetric Mouth: Yes Normal oral and palatal mucosa present, Yes lip normal, Yes tongue normal and Yes moist mucous membranes Throat: posterior oropharynx normal, tonsils normal, uvula midline and no uvular edema Eyes: General: appearance normal, both eyes and all related structures Neck: Neck: normal visual inspection, full ROM, no lymphadenopathy and no meningeal signs Chest: Chest palpation & inspection: normal inspection of the chest Resp: Effort & Inspection: normal respiratory effort and able to speak in complete sentences Auscultation: clear to auscultation bilaterally, no crackles, no rales, no rhonchi and no wheezes Cardio: Rate: regular rate Skin: General skin exam: normal color and no rashes or lesions noted Neuro: General: patient oriented x3, gait normal, moves all extremities and no meningeal signs Cognition (Neuro): normal cognition Speech: normal speech Gait exam (Neuro): Normal gait present Extrem: General: normal to inspection, full ROM, capillary refill normal and normal gait Psych: Appearance: grossly normal and well kempt Mental Status: mental status grossly normal Speech and movement: Normal speech and movement present and Clear speech present Affect: normal affect Attitude: cooperative Course Course Level of Care: Express Care Visit Vital Signs Vital signs: Vital Signs Temperature 97.9 F 04/16/24 18:49 Pulse Rate 63 04/16/24 18:49 Respiratory Rate 18 04/16/24 18:49 Blood Pressure 128/72 04/16/24 18:49 Pulse Oximetry 100 04/16/24 18:49 Oxygen Delivery Room Air 04/16/24 18:49 Temperature 97.9 F 04/16/24 18:49 Pulse Rate 63 04/16/24 18:49 Respiratory Rate 18 04/16/24 18:49 Blood Pressure 128/72 04/16/24 18:49 Pulse Oximetry 100 04/16/24 18:49 Oxygen Delivery Room Air 04/16/24 18:49 Reviewed Medical Decision Making MDM Narrative Medical decision making narrative: Patient sitting comfortably in exam room. Nontoxic, vitals stable. Patient in no acute distress Patient presents for 2 days of increasing left ear pain. Erythema noted to the TM. Patient appropriate for outpatient treatment with antibiotic and close follow-up. Also discussed yvbz-fdv-braxzvv products which patient verbalized understanding. Discharge instructions reviewed with patient, as well as provided in writing per nursing staff. The instructions also include specific and strict return/GO TO THE ER as well as f/u information. All questions have been answered, and the patient deny any further questions with discharge and discharge plan. Some parts of this dictation were generated by voice recognition software and may contain typographical and/or grammatical inaccuracies. Differential Diagnosis Differential Diagnosis: Otitis media, serous otitis, otitis externa Medical Records Medical records reviewed: Yes I reviewed the external patient's medical records. Vital Signs Vital Signs: Vital Signs Temperature 97.9 F 04/16/24 18:49 Pulse Rate 63 04/16/24 18:49 Respiratory Rate 18 04/16/24 18:49 Blood Pressure 128/72 04/16/24 18:49 Pulse Oximetry 100 04/16/24 18:49 Oxygen Delivery Room Air 04/16/24 18:49 Temperature 97.9 F 04/16/24 18:49 Pulse Rate 63 12/27/24 18:49 Respiratory Rate 18 04/16/24 18:49 Blood Pressure 128/72 04/16/24 18:49 Pulse Oximetry 100 04/16/24 18:49 Oxygen Delivery Room Air 04/16/24 18:49 Reviewed Lab Data Lab results reviewed: Yes I reviewed the patient's lab results. Labs: Reviewed Critical Care Time Critical Care Time Critical Care Time: No Discharge Plan Discharge Clinical Impression: Acute left otitis media Patient Disposition: Home, Self-Care Condition: Stable Instructions: Antibiotic Form, Ear Infection (GEN) Additional Instructions: It is very important to treat your symptoms. Drink plenty of water, Gatorade, Pedialyte, ice pops or Jell-O. -Alternate Tylenol and Motrin per package directions for fever or pain. You can alternate every 4 hours -Antihistamine medication such as Zyrtec/Claritin/Sulma during the day can help improve symptoms. -doing daily nasal irrigations can help relieve pressure your sinuses. Things like a Neti pot -Use Flonase twice a day for 5 days then daily to help reduce the inflammation and dry up your sinuses. -You can also use Coricidin HBP or a blood pressure safe Mucinex. Be sure to drink plenty of water with this medication at least 8 ounces with every dose and it is important to drink 8 to 10 glasses of water per day. Water is a natural decongestant -Eat and drink things that are easy to swallow, like tea or soup, or popsicles. -Oral rinses such as: Salt water gargles and/or may use topical anesthetic (eg. Chloraseptic spray) or lozenges to relieve dryness or throat pain). -Frequent hand washing or hand splunk developer is one of the best ways to prevent spread of infection. -Using a vaporizer or humidifier at night will also help thin secretions and help with coughing up phlegm. -Follow up with primary care provider in 7-10 days if condition is not improving - For new or worsening symptoms go directly to the nearest ER Patient Language: [place] Prescriptions: New azithromycin 500 mg tablet 500 mg PO DAILY 5 Days Qty: 5 0RF No Action amlodipine 2.5 mg tablet 2.5 mg PO DAILY bupropion HCl 75 mg Tablet 75 mg PO DAILY nebivolol 2.5 mg Tablet 5 mg PO DAILY B cmplx 4-vit L8-Q-ksmmu-zinc 1,750-60-1-12.5 ymkx-ug-us-mg Tablet 1 tablet PO DAILY fish yac-mjszu-5-vit C-vit E 2,000-650-12 mg/2.5 gram Emulsion In Packet 1 g PO DAILY metformin 500 mg tablet extended release 24 hr 500 mg PO DAILY doxycycline hyclate 100 mg capsule 100 mg PO BID 10 Days Qty: 20 0RF Follow-up/Referrals: UNKNOWN,DOCTOR [Primary Care Provider] - Stand Alone Forms: Work/School Release IP Time of Disposition: 19:08
== END 2024-04-16 19:12 | disposition home or self-care (01) ==
PROVIDERS: Emergency Provider Nurse Practitioner
DX: H66.92 Otitis media, unspecified, left ear (principal); I10 Essential (primary) hypertension
CPT/HCPCS: 99213; G0463

== ENCOUNTER 2024-05-28 18:19 | Emergency (ER) | payer OTHER, SELFPAY ==
--- OUTSIDE RECORDS SUMMARY | 2024-05-28 18:21 | XMS_ITS | Encounter Summary ---
Author Organization [facility] Address [address] [place] [address] Care Team Providers Care Costume Draper Name Role Phone Hari Gautam MD Primary Care Provider [phone] Reason for Visit * Reason Comments Information Encounter Details Date Type Department Care Team (Late st Contact Info) Description 01/12/2024 Telephone [facility] [address] [place] [address] Hari Gautam MD [address] [place] [address] [address] [place] [address] Information Social History Tobacco Use Types Packs/Day Years Used Date Smoking Tobacco: Never Passive Smoke Exposure: Never Smokeless Tobacco: Never Alcohol Use Standard Drinks/Week Comments Yes 1 (1 standard drink = 0.6 oz pur e alcohol) socially Feeling Safe Answer Date Recorded Are you in a relationship wi th someone who hurts you emotionally and/or physically? No 10/30/2022 Comments No Sex and Gender Information Value Date Recorded Sex Assigned at Not on file Legal Sex Female 11:53 AM CDT Gender Identity Not on file Sexual Orientation Not on file documented as of this encounter Miscellaneous Notes * Telephone Encounter - Katelyn Abreu LPN - 01/12/2024 1:14 PM CDT Seen in ER last night for dizziness, chest pressure. Informed D-dimer elevated to 600. Appt made 01/14/24 with PA * Telephone Encounter - Sheela Garcia - 01/12/2024 1:07 PM CDT Copied from [facility] #[id number]. Topic: Patient or Caregiver Communication Request >> Jan 12, 2024 1:06 PM Sheela Jordan wrote: Patient or Caregiver insisting that a message be sent to Care Team Caller: Noemí Alonso Patient/Caregiver Callback Number: [phone] (home) Call Notes: Patient is requesting to speak with someone in Dr. Gautam office. documented in this encounter Plan of Treatment Upcoming Encounters Date Type Department Care Team (Late st Contact Info) Description 06/01/2024 1:40 PM PROGRAM MANAGER TRANSPORTATION Office Visit [facility] [address] [facility] [address] [place] [id number] Hari Gautam MD [address] [facility] [address] [place] [phone] 06/11/2024 2:00 PM PROGRAM MANAGER TRANSPORTATION Appointment [facility] Blood Flow [address] [place] [phone] John Chaudhary MD [address] [facility] [address] [place] [address] 06/11/2024 3:15 PM PROGRAM MANAGER TRANSPORTATION Office Visit [facility] [address] [facility] [address] [facility] [address] [place] [address] John Chaudhary MD [address] [facility] [address] [place] [address] documented as of this encounter Visit Diagnoses Not on filedocumented in this encounter Care Teams Costume Draper Relationship Specialty Start Date End Date Hari Gautam MD PCP - General Internal Medicine 09/05/14 documented as of this encounter
--- OUTSIDE RECORDS SUMMARY | 2024-05-28 18:21 | XMS_ITS | Clinical Summary ---
Author Organization [facility] Address [address] [place] [address] Care Team Providers Care Hris Manager Name Role Phone Hari Gautam MD Primary Care Provider [phone] Allergies Active Allergy Reactions Criticality Noted Date Comments Iodine Swelling 09/30/2019 Gadolinium Other (see comment),Rash Medium 06/25/2017 [place] congested around her nose, throat, and face. Iodinated Contrast Media Unknown 06/20/2018 Lisinopril Rash Low 10/14/2019 Meloxicam Swelling,Unknown Low 03/03/2012 Penicillins Hives,Unknown High 03/03/2012 Progesterone Rash,Unknown Low 06/20/2018 Medications fish oil 1000 MG Cap capsule Take 1,000 mg by mouth 2 (two) times daily. Active B complex-C Cap capsule Take 1 capsule by mouth daily. Active Cholecalciferol (VITAMIN D) 50 MCG (2000 UT) Tab Active dulaglutide 0.75 MG/0.5ML injection Inject 0.75 mg into the skin once a week. 02/25/2020 Active Cyanocobalamin (VITAMIN B-12) 2000 MCG Tab CR Take 1 tablet by mouth daily. Active pravastatin 20 MG tablet Take 20 mg by mouth. 02/25/2020 Active amLODIPine 2.5 MG tablet Take 2.5 mg by mouth daily. 03/20/2020 Active nebivolol (BYSTOLIC) 5 MG tablet Take 5 mg by mouth daily. 01/14/2022 Active EPINEPHrine 0.3 MG/0.3ML injection EpiPen 2-Uche 0.3 MG/0.3ML [id number] 2012Active 01/23/2012 Active buPROPion XL (WELLBUTRIN XL) 150 MG 24 hr tablet TAKE 1 TABLET(150 MG) BY MOUTH DAILY IN THE MORNING 12/10/2021 Active Active Problems No known active problems Immunizations Name Administration Dates Next Due Flucelvax 2 YRS+ (Multi-Dose Vial) 03/07/2018 Flucelvax 6 Months+ (Prefill ed Syringe) 01/25/2019 Fluzone 6 Months+ Quad (0.5 mL Prefilled Syringe) 02/06/2020 Influenza (Generic) 02/04/2020, 6,01/24/2015,2013,05/01/2013 Influenza Adult (Generic) 03/25/2017,12/2015,01/23/2015,2013 MODERNA COVID-19 (12+) MRNA, LNP-S, PF, 100 MCG/ 0.5 ML DOSE 03/21/2021,06/23/2020,05/26/2020 Pneumococcal (Pneumovax 23) 02/27/2020 Tdap (Generic) 12/01/2013 Social History Tobacco Use Types Packs/Day Years Used Date Smoking Tobacco: Never Smokeless Tobacco: Never Tobacco Cessation:Counseling Given: Not Answered Alcohol Use Standard Drinks/Week Comments Yes 0 (1 standard drink = 0.6 oz pur e alcohol) socially on the weekends PHQ-2 Answer Date Recorded Patient Health Questionnaire-2 Score 0 04/15/2022 Comments No Sex and Gender Information Value Date Recorded Sex Assigned at Not on file Legal Sex Female 9:23 PM CDT Gender Identity Not on file Sexual Orientation Not on file Last Filed Vital Signs Vital Sign Reading Time Taken Comments Blood Pressure 134/80 01/12/2024 6:12 AM CDT Pulse 90 01/12/2024 6:12 AM CDT Temperature 36.1 C (97 F) 01/12/2024 6:12 AM CDT Respiratory Rate 16 01/12/2024 6:12 AM CDT Oxygen Saturation 100% 01/12/2024 6:12 AM CDT Inhaled Oxygen Concentration - - Weight 86.2 kg (190 lb) 01/12/2024 12:24 AM CDT Height 165.1 cm (5' 5 ) 01/12/2024 12:24 AM CDT Body Mass Index 31.62 01/12/2024 12:24 AM CDT Plan of Treatment Health Maintenance Due Date Last Done Comments Cervical Cancer Screening Pap Smear (Age 30 to 64) Every 3 Years 1974 Colorectal Cancer Screening Colonoscopy (10 Years) 1974 Annual Physical 1977 Hepatitis C 1992 Hepatitis B Vaccines (1 of 3 - 19+ 3-dose series) 1993 Cervical Cancer Screening Pap with HPV Testing (Age 30 to 64) Every 5 Years 2004 Cervical Cancer Screening with HPV 2004 Mammogram Screening 2014 COVID-19 Vaccine ( season) 2023 03/21/2021, 06/23/2020, 05/26/2020 Influenza Adult (#1) 2024 02/03/2023, 01/29/2023, 02/06/2020, Additional history exists Zoster Vaccines (1 of 2) 2024 DTaP, Tdap and Td Vaccines (3 - Td or Tdap) 11/24/2033 11/25/2023, 12/01/2013 Pneumococcal Vaccine: Pediatrics (0 to 5 Years) and At-Risk Patients (6 to 64 Years) Aged Out 02/27/2020 No longer eligible based on patient's age to complete this topic Meningococcal B Vaccine Aged Out No l onger eligible based on patient's age to complete this topic Meningococcal Vaccine Aged Out No liv jeevan eligible based on patient's age to complete this topic RSV Immunizations Under 20 Months Aged Out No longer eligible based on patient's age to complete this topic Insurance Care Teams Hris Manager Relationship Specialty Start Date End Date Hari Gautam MD PCP - General INTERNAL MEDICINE 09/30/19
--- OUTSIDE RECORDS SUMMARY | 2024-05-28 18:21 | XMS_ITS | Referral Summary ---
Author Organization [facility] Address [address] [place] [address] Care Team Providers Care Radiological Technician Name Role Phone Hari Gautam MD Primary Care Provider [phone] Source Comments [facility],non-owned Affiliates and Associated Physician Practices is amultiple site organization consisting of ambulatory clinics and hospital sitesin [place], [place], [place] and [place]. This disclosure is being madepursuant to the Care Everywhere program and may not contain all information available regarding this patient. Last updated 18.[facility] Allergies Active Allergy Reactions Criticality Noted Date Comments Contrast-Iodinated Agents For Ct/Other Unknown 06/20/2018 Meloxicam Unknown 06/20/2018 Penicillins Unknown 06/20/2018 Progesterone Unknown 06/20/2018 Medications * Be aware that medications may not be up to date on this document. Alwaysverify current medications with the patient. Medication Sig Dispensed Refills Start Date End Date Status LORazepam (ATIVAN) 1 MG tablet Take 1 tablet by mouth every 12 hours as needed for Anxiety 10 tablet 06/20/2018 Active Social History Tobacco Use Types Packs/Day Years Used Date Smoking Tobacco: Never Alcohol Use Standard Drinks/Week Comments No 0 (1 standard drink = 0.6 oz pur e alcohol) Sex and Gender Information Value Date Recorded Sex Assigned at Not on file Gender Identity Not on file Sexual Orientation Not on file Last Filed Vital Signs Vital Sign Reading Time Taken Comments Blood Pressure 150/100 06/20/2018 8:17 PM [employer] Pulse 110 06/20/2018 2:56 PM [employer] Temperature 36.7 C (98 F) 06/20/2018 2:56 PM [employer] Respiratory Rate 20 06/20/2018 2:56 PM [employer] Oxygen Saturation 96% 06/20/2018 10:30 PM [employer] Inhaled Oxygen Concentration - - Weight 90.7 kg (200 lb) 06/20/2018 2:56 PM [employer] Height 162.6 cm (5' 4 ) 06/20/2018 2:56 PM [employer] Body Mass Index 34.33 06/20/2018 2:56 PM [employer] Plan of Treatment Not on file Care Teams Radiological Technician Relationship Specialty Start Date End Date Hari Gautam MD PCP - General Internal Medicine 06/20/18
--- OUTSIDE RECORDS SUMMARY | 2024-05-28 18:21 | XMS_ITS | Clinical Summary ---
Author Organization [facility] Address [address] [place] [place] [address] Care Team Providers Care Unbundler Name Role Phone Hari Gautam MD Primary Care Provider [phone] Source Comments [facility],non-owned Affiliates and Associated Physician Practices is amultiple site organization consisting of ambulatory clinics and hospital sitesin [place], [place], [place] and [place]. This disclosure is being madepursuant to the Care Everywhere program and may not contain all information available regarding this patient. Last updated 18.[facility] Allergies Active Allergy Reactions Criticality Noted Date [...] Comments Blood Pressure 150/100 06/20/2018 8:17 PM FEATHER DUSTER WINDER Pulse 110 06/20/2018 2:56 PM FEATHER DUSTER WINDER Temperature 36.7 C (98 F) 06/20/2018 2:56 PM FEATHER D[employer]ER WINDER Respiratory Rate 20 06/20/2018 2:56 PM FEATHER D[employer]ER [employer]ER Oxygen Saturation 96% 06/20/2018 10:30 PM FE[employer] D[employer]ER [employer]ER Inhaled Oxygen Concentration - - Weight 90.7 kg (200 lb) 06/20/2018 2:56 PM [employer] D[employer]ER [employer]ER Height 162.6 cm (5' 4 ) 06/20/2018 2:56 PM FE[employer] D[employer]ER W[employer]ER Body Mass Index 34.33 06/20/2018 2:56 PM FEATHER D[employer]ER WINDER Plan of Treatment Health Maintenance Due Date Last Done Comments COLOGUARD (AGES 45-75) - COL ON CA SCREENING 1974 COLON MONITORING 1974 COLONOSCOPY - COLON CA SCREENING 1974 CT COLONOGRAPHY - COLON CA SCREENING 1974 Colorectal Cancer Screening 1974 FIT - COLON CA SCREENING 1974 FLEX SIG - COLON CA SCREENING 1974 LIPID TESTING 1974 MAMMOGRAM 1974 PAP SMEAR 1974 HIV SCREENING 1989 HEPATITIS C SCREENING 04/15/1992 DTAP/TDAP/TD VACCINES (1 - Tdap) 1993 HEPATITIS B VACCINE (1 of 3 - 19+ 3-dose series) 1993 COVID-19 VACCINE ( - 2023-2 5 season) 2023 INFLUENZA VACCINE (#1) 2023 PNEUMOCOCCAL VACCINE 50+ (1 of 1 - PCV) 2024 ZOSTER VACCINE (1 of 2) 2024 DEPRESSION SCREENING 04/21/2024 HIB VACCINE Aged Out No longer eligi ble based on patient's age to complete this topic HPV VACCINE Aged Out No longer eligi ble based on patient's age to complete this topic MENINGOCOCCAL (Group B) VACCINE Aged Out No longer eligible based on patient's age to complete this topic MENINGOCOCCAL VACCINE Aged Out No liv jeevan eligible based on patient's age to complete this topic PNEUMOCOCCAL VACCINE Aged Out No long er eligible based on patient's age to complete this topic Care Teams Unbundler Relationship Specialty Start Date End Date Hari Gautam MD PCP - General Internal Medicine 06/20/18
--- OUTSIDE RECORDS SUMMARY | 2024-05-28 18:22 | XMS_ITS | Clinical Summary ---
Author Organization [facility] Address [address] [place] [address] Care Team Providers Care Solution Specialist Name Role Phone Hari Gautam MD Primary Care Provider Allergies Active Allergy Reactions Criticality Noted Date Comments Gadolinium-Containing Contrast Media Rash,Other (See Comments) Medium 06/25/2017 [place] congested around her nose, throat, and face. Iodinated Contrast Media Unknown 06/20/2018 Lisinopril Rash Low 10/14/2019 Meloxicam Swelling Low 09/20/2014 Penicillins Hives High 09/20/2014 Progesterone Rash Low 09/20/2014 Medications OMEGA-3 FATTY ACIDS/FISH OIL (OMEGA 3 FISH OIL ORAL) Take 1 Cap by mouth 2 times daily. Active cyanocobalamin (vit B-12) ER 2,000 mcg tablet,extended release Take 1 Tablet by mouth daily. Active cholecalciferol , Vitamin D3, (VITAMIN D3) 1,000 unit Capsule Take 1,000 Units by mouth daily. Active L. ACIDOPHILUS/L. RHAMNOSUS (PROBIOTIC ORAL) Take 1 Capsule by mouth. Active melaton-geniste in-herb no.233 1.5-15-22 mg-mg-mcg Tablet, Chewable Active levocetirizine 5 mg tablet 021 Active fluticasone propionate (FLONASE) 50 mcg/spray [place], Suspension nasal inhaler SHAKE LIQUID AND USE 2 SPRAYS IN EACH NOSTRIL DAILY NEEDED FOR ALLERGY SYMPTOMS 022 Active Hydroquinone 4 % Cream Apply to affected area daily. Active Minoxidil 5 % Foam Apply 5 % to affected area daily. Active ALPRAZolam (XANAX) 2 mg tablet PATIENT IS TO BRING INTO OFFICE THE DAY OF PROCEDURE AND WILL FOLLOW IN OFFICE DIRECTIONS. Active oxyCODONE-aceta minophen (PERCOCET) 7.5-325 mg Tablet BRING TO OFFICE FOR PROCEDURE Active tranexamic acid (LYSTEDA) 650 mg Tablet tablet Active cyanocobalamin (VITAMIN B-12) 1,000 mcg/mL Solution Inject 1 mL (1,000 mcg) by intramuscular injection every 30 days. 10 mL 2 Active Syringe with Needle, Disp, (BD Luer-Chrissy Syringe) 3 mL 25 gauge x 1 Syringe For b12 injection 10 Each 1 Active pravastatin (PRAVACHOL) 20 mg tablet TAKE 1 TABLET(20 MG) BY MOUTH DAILY AT BEDTIME 90 Tablet 3 Active Additional Information Patient not taking.Reported on 01/14/2024 pravastatin (PRAVACHOL) 20 mg tablet TAKE 1 TABLET(20 MG) BY MOUTH DAILY AT BEDTIME 90 Tablet 3 Active Additional Information Patient not taking.Reported on 01/14/2024 pravastatin (PRAVACHOL) 20 mg tablet TAKE 1 TABLET(20 MG) BY MOUTH DAILY AT BEDTIME 90 Tablet 3 024 Active Additional Information Patient not taking.Reported on 01/14/2024 metFORMIN (GLUCOPHAGE XR) 500 mg Extended Release 24 hour tablet Take 1 Tablet (500 mg) by mouth daily with breakfast. 100 Tablet 3 024 Active semaglutide (Ozempic) 0.25 mg or 0.5 mg (2 mg/3 mL) Pen Injector Inject 0.5 mg by subcutaneous injection every 7 days. 3 mL 6 Active amLODIPine (NORVASC) 2.5 mg tablet TAKE 1 TABLET(2.5 MG) BY MOUTH DAILY 100 Tablet 3 024 Active nebivoloL (BYSTOLIC) 5 mg TabletIndicatio ns:Essential hypertension Take 1 tablet by mouth once daily 90 Tablet 3 Active buPROPion HCL (WELLBUTRIN XL) 150 mg Extended Release 24 hour tablet TAKE 1 TABLET(150 MG) BY MOUTH DAILY IN THE MORNING 100 Tablet 3 025 Active buPROPion HCL (Wellbutrin XL) 150 mg Extended Release 24 hour tablet Take 1 Tablet (150 mg) by mouth daily in the morning. 90 Tablet 3 023 2024 Discontinued Active Problems Patient Care Coordination No te Formatting of this note migh t be different from the original. Prev 05/15/21 Berto sister Problem Noted Date Diagnosed Date Prediabetes 02/13/2024 Mass of upper inner quadrant of right breast 05/2021 Dense breast tissue on mammogram 11/20/2021 Essential hypertension 07/17/2021 Varicose veins of both lower extremities with pa in 05/15/2021 Obesity (BMI 30.0-34.9) 06/27/2016 Abnormal thyroid blood test 09/20/2014 Family history of heart disease 09/20/2014 Encounters Date Type Department Care Team Description 05/18/[address] [phone] Hari Gautam MD 05/12/2024 External Device Data [facility] ABSTRACTION Provider, Abstract 05/11/2024 External Device Data [facility] ABSTRACTION Provider, Abstract 05/10/[address] [address] Hari Gautam MD Information 05/10/[address] [facility] Textile Supervisor [address] [address] John Chaudhary MD Varicose veins of both lower extremities with pain (Primary Dx) 05/05/2024 External Device Data [facility] ABSTRACTION Provider, Abstract 04/22/[address] [place] [phone] Hari Gautam MD Essential hypertension 04/01/[address], [place] [address] Hari Gautam MD 03/12/[address] [facility] Primary Care [facility] [address] [facility] [address] [place] [address] Provider, Abstract 02/26/2024 4:50 PM SENIOR EDUCATION SPECIALIST - 02/26/2024 11:59 PM SENIOR EDUCATION SPECIALIST Hospital Encounter [facility] [place] [facility] [address] [place] [address] Faye Queen FNP Discharge Disposition: Home or Self Care from Last 3 Months Immunizations Immunization Administration Dates Next Due (ADACEL/BOOSTRIX)(10 YR UP) TDAP VACCINE, 0.5ML, IM 11/25/2023,12/01/2013 (PNEUMOVAX 23)(50 YRS UP) PN EUMOCOCCAL POLYSACCHARIDE (PPV23) 0.5 ML, IM 02/27/2020 (SPIKEVAX) (12 YRS UP PRIMAR Y SERIES) COVID-19 VACCINE - MRNA-1273(PF) 100 MCG/0.5 ML IM SUSP 03/21/2021,06/23/2020,05/26/2020 INFLUENZA VACCINE QUADRIVALE NT 6 MOS UP CELL DERIVED IM 03/07/2018 INFLUENZA VACCINE QUADRIVALE NT 6 MOS UP CELL DERIVED PF IM 01/25/2019 INFLUENZA VACCINE QUADRIVALE NT 6 MOS UP IM 02/03/2023 INFLUENZA VACCINE QUADRIVALE NT 6 MOS UP PF IM 02/06/2020,03/25/2017 INFLUENZA VACCINE TRIVALENT SPLIT VIRUS, (6 MOS UP), 0.5ML (PF), IM 01/14/2024 Influenza Seasonal Unspecifi ed Formulation IM 01/29/2023,02/04/2020,01/29/2016,01/24,12/21/2013 Influenza Vaccine Quad Split 18 Yrs+ Im 03/07/2018 Influenza, Unspecified Formulation 02/03,03/25/2017,01/29/2016,01/27,01/24/2015,01/23/2015,01/23/2014 ,12/21/2013,05/01/2013 PNEUMOVAX (PPSV23) pneumococ seth polysaccharide 23-valent Vaccine 02/27/2020 Family History Medical History Relation Name Comments Diabetes Father Breast Cancer Maternal Cousin Heart Attack Mother Quad -bypass Heart Disease Mother Ovarian Cancer Paternal Aunt Colon Cancer Neg Hx Relation Name Status Comments Brother Alive Father Alive Maternal Cousin Mother Alive Paternal Aunt Sister Alive Social History Tobacco Use Types Packs/Day Years Used Date Smoking Tobacco: Never Passive Smoke Exposure: Never Smokeless Tobacco: Never Tobacco Cessation:Counseling Given: No Alcohol Use Standard Drinks/Week Comments Yes 1 [...] Sign Reading Time Taken Comments Blood Pressure 138/79 01/14/2024 3:29 PM CDT Pulse 85 01/14/2024 3:29 PM CDT Temperature 36.8 C (98.2 F) 01/14/2024 3:29 PM CDT Respiratory Rate 16 02/25/2023 3:41 PM SENIOR EDUCATION SPECIALIST Oxygen Saturation 97% 01/14/2024 3:29 PM CDT Inhaled Oxygen Concentration - - Weight 91.6 kg (202 lb) 01/14/2024 3:29 PM CDT Height 162.6 cm (5' 4 ) 01/14/2024 3:29 PM CDT Body Mass Index 34.67 01/14/2024 3:29 PM CDT Plan of Treatment Upcoming Encounters Date Type Department Care Team (Late st Contact Info) Description 06/01/2024 1:40 PM SENIOR EDUCATION SPECIALIST Office Visit [facility] Primary [facility] [place] [address] [place] [phone] Hari Gautam MD [address] [place] [address] [address] [place] [phone] 06/11/2024 2:00 PM SENIOR EDUCATION SPECIALIST Appointment [facility] Blood Flow [address] [place] [address] John Chaudhary MD [address] [facility] [address] [place] [address] 06/11/2024 3:15 PM SENIOR EDUCATION SPECIALIST Office Visit [facility] Textile Supervisor [facility] [address] [address] [place] [address] John Chaudhary MD [address] [place] [address] Health Maintenance Due Date Last Done Comments HEPATITIS B VACCINES (1 of 3 - 19+ 3-dose series) 1993 CERVICAL CANCER SCREENING 2004 FIT-DNA Q 3 years 2019 FIT/FOBT Q 1 year 2019 Flex Sig/CT Colonography Q 5 years 2019 COVID-19 Vaccine (2023-2 5 season) 2023 03/21/2021, 06/23/2020, 05/26/2020 ZOSTER VACCINE (1 of 2) 2024 Preventative Visit- Commercial 04/21/2024 0 05/14/2022, 05/15/2021, 10/11/2019, Additional history exists BREAST CANCER SCREENING 02/25/2025 02/26/20 24, 01/25/2023, 06/28/2021, Additional history exists Pre-Diabetes and Diabetes Screening 05/27/2027 05/27/2024, 11/20/2023, 05/07/2022, Additional history exists COLORECTAL SCREENING 10/31/2027 10/30/2022, 10/31/19 23 Colorectal Cancer Screening 10/31/2027 DTAP/TDAP/TD VACCINES (3 - T d or Tdap) 11/24/2033 11/25/2023, 12/01/2013 INFLUENZA VACCINE Completed 01/14/2024, , 01/29/2023, Additional history exists Procedures Procedure Name Priority Date/Time Associated Diagnosis Comments VITAMIN D 25 HYDROXY Routine 05/27/2024 7:07 AM SENIOR EDUCATION SPECIALIST Vitamin D deficiency VITAMIN B12 LEVEL Routine 05/27/2024 7:0 7 AM SENIOR EDUCATION SPECIALIST Vitamin B12 deficiency (non anemic) TSH Routine 05/27/2024 7:07 AM SENIOR EDUCATION SPECIALIST Other hyperlipidemia LIPID PANEL Routine 05/27/2024 7:07 AM SENIOR EDUCATION SPECIALIST Other hyperlipidemia HEMOGLOBIN A1C Routine 05/27/2024 7:07 AM SENIOR EDUCATION SPECIALIST Prediabetes CK Routine 05/27/2024 7:07 AM SENIOR EDUCATION SPECIALIST Other hyperlipidemia COMPREHENSIVE METABOLIC PANEL Routine 05/27/2024 7:07 AM SENIOR EDUCATION SPECIALIST Other hyperlipidemia CBC WITH DIFFERENTIAL Routine 05/27/2024 7:07 AM SENIOR EDUCATION SPECIALIST Vitamin B12 deficiency (non anemic) MAMMO 3D MOE SCREEN BILAT W OR WO CAD Routine 02/26/2024 5:28 PM SENIOR EDUCATION SPECIALIST Visit for screening mammogram COLONOSCOPY REPORT 10/30/2022 9: 24 AM CDT from Last 3 Months or Most Recently Relevant to Health Maintenance Results * CBC WITH DIFFERENTIAL (05/27/2024 7:07 AM SENIOR EDUCATION SPECIALIST) Pathologist [facility] WBC 7.2 3.8 - 10.8 Thousand/u L [facility] RBC 4.65 3.80 - 5.10 Million/uL [facility] HEMOGLOBIN 13.7 11.7 - 15.5 g/dL [facility] HEMATOCRIT 41.8 35.0 - 45.0 % [facility] MCV 89.9 80.0 - 100.0 fL [facility] MCH 29.5 27.0 - 33.0 pg [facility] MCHC 32.8 32.0 - 36.0 g/dL [facility] Comment: For adults, a slight decrease in the calculated MCHC value (in the range of 30 to 32 g/dL) is most likely not clinically significant; however, it should be interpreted with caution in correlation with other red cell parameters and the patient's clinical condition. RDW 12.2 11.0 - 15.0 % [facility] PLATELETS 299 140 - 400 Thousand/u L [facility] MPV 10.7 7.5 - 12.5 fL [facility] NEUTROPHIL ABSOLUTE 4,471 1,500 - 7,800 cells/uL [facility] LYMPHOCYTE ABSOLUTE 2,102 850 - 3,900 cells/uL [facility] MONOCYTE ABSOLUTE 540 200 - 950 cells/uL [facility] EOSINOPHIL ABSOLUTE 58 15 - 500 cells/uL [facility] BASOPHILS ABSOLUTE 29 0 - 200 cells/uL [facility] NEUTROPHIL 62.1 % [facility] LYMPHOCYTES 29.2 % [facility] MONOCYTE 7.5 % [facility] EOSINOPHILS 0.8 % [facility] BASOPHILS 0.4 % [facility] Comment: Test Performed at: [facility] [address] [place] [address] Reese Velarde MD Blood 05/27/2024 7:07 AM SENIOR EDUCATION SPECIALIST 05/27/2024 7:08 AM SENIOR EDUCATION SPECIALIST us Hari Gautam MD HEMATOLOGY ORDERABLES Final R esult [facility] [phone] [facility] [place] [address] [address] * (ABNORMAL) VITAMIN D 25 HYDROXY (05/27/2024 7:07 AM SENIOR EDUCATION SPECIALIST) VITAMIN D, 25 OH, TOTAL 27(L) 30 - 100 ng/mL [facility] Comment: Vitamin D Status 25-OH Vitamin D: Deficiency: <20 ng/mL Insufficiency: 20 - 29 ng/mL Optimal: > or = 30 ng/mL For 25-OH Vitamin D testing on patients on D2-supplementation and patients for whom quantitation of D2 and D3 fractions is required, the [facility](TM) 25-OH VIT D, (D2,D3), LC/MS/MS is recommended: order code 62520 (patients >2yrs). See Note 1 Note 1 For additional information, please refer to http://education.[employer]/faq/PJK851 (This link is being provided for informational/ educational purposes only.) Test Performed at: [facility] [address] [address] Reese Velarde MD Blood 05/27/2024 7:07 AM SENIOR EDUCATION SPECIALIST 05/27/2024 7:08 AM SENIOR EDUCATION SPECIALIST Hari Gautam MD CHEMISTRY ORDERABLES Final Re sult Performing Organization Address [facility] de Phone Number [facility] [phone] [facility] [address] [address] [place] [address] * TSH (05/27/2024 7:07 AM SENIOR EDUCATION SPECIALIST) TSH 1.55 mIU/L [facility] Comment: Reference Range > or = 20 Years 0.40-4.50 Ranges First trimester 0.26-2.66 Second trimester 0.55-2.73 Third trimester 0.43-2.91 Test Performed at: [facility] [address] [address] [address] Reese Velarde MD Blood 05/27/2024 7:07 AM SENIOR EDUCATION SPECIALIST 05/27/2024 7:08 AM SENIOR EDUCATION SPECIALIST Hari Gautam MD CHEMISTRY ORDERABLES Final Re sult Performing Organization Address [facility] Co de Phone Number [facility] [phone] [facility] [address] [place] [address] * (ABNORMAL) HEMOGLOBIN A1C (05/27/2024 7:07 AM SENIOR EDUCATION SPECIALIST) HEMOGLOBIN A1C 5.7(H) <5.7 % of total Hgb [facility] Comment: For someone without known diabetes, a hemoglobin A1c value between 5.7% and 6.4% is consistent with prediabetes and should be confirmed with a follow-up test. For someone with known diabetes, a value <7% indicates that their diabetes is well controlled. A1c targets should be individualized based on duration of diabetes, age, comorbid conditions, and other considerations. This assay result is consistent with an increased risk of diabetes. Currently, no consensus exists regarding use of hemoglobin A1c for diagnosis of diabetes for children. ESTIMATED AVERAGE GLUCOSE (MG/DL) 117 mg/dL [facility] ESTIMATED AVERAGE GLUCOSE (MMOL/L) 6.5 mmol/L [facility] Comment: Test Performed at: [facility] [address] [place] [address] Reese Velarde Blood 05/27/2024 7:07 AM SENIOR EDUCATION SPECIALIST 05/27/2024 7:08 AM SENIOR EDUCATION SPECIALIST Result [facility] Hari Gautam MD CHEMISTRY ORDERABLES Final Re sult Performing Organization Address [facility] Phone Number [facility] [phone] [facility] [address] [place] [address] * VITAMIN B12 LEVEL (05/27/2024 7:07 AM SENIOR EDUCATION SPECIALIST) VITAMIN B12 387 200 - 1100 pg/mL [facility] Comment: Please Note: Although the reference range for vitamin B12 is 200-1100 pg/mL, it has been reported that between 5 and 10% of patients with values between 200 and 400 pg/mL may experience neuropsychiatric and hematologic abnormalities due to occult B12 deficiency; less than 1% of patients with values above 400 pg/mL will have symptoms. Test Performed at: [facility] [address] [address] [address] Reese Velarde MD Blood 05/27/2024 7:07 AM SENIOR EDUCATION SPECIALIST 05/27/2024 7:08 AM SENIOR EDUCATION SPECIALIST Hari Gautam MD CHEMISTRY ORDERABLES Final Re sult Performing Organization Address City/[facility]/ZIP [facility] Phone Number [facility] [phone] [facility] [address] [address] [address] * CK (05/27/2024 7:07 AM SENIOR EDUCATION SPECIALIST) CK 43 21 - 240 U/L [facility] Comment: Test Performed at: [facility] [address] [place] [address] Reese Velarde MD Blood 05/27/2024 7:07 AM SENIOR EDUCATION SPECIALIST 05/27/2024 7:08 AM SENIOR EDUCATION SPECIALIST us Hari Gautam MD CHEMISTRY ORDERABLES Final Re sult [facility] [phone] [facility] [address] [facility] [place] [address] * (ABNORMAL) LIPID PANEL (05/27/2024 7:07 AM SENIOR EDUCATION SPECIALIST) [facility] CHOLESTEROL 229(H) <200 mg/dL [facility] HDL 41(L) > OR = 50 mg/dL [facility] TRIGLYCERIDE 245(H) <150 mg/dL [facility] Comment: If a non-fasting specimen was collected, consider repeat triglyceride testing on a fasting specimen if clinically indicated. Sridevi et al. J. of Clin. Lipidol. 2015;9:129-169. LDL CALCULATED 148(H) mg/dL (calc) [facility] Comment: Reference range: <100 Desirable range <100 mg/dL for primary prevention; <70 mg/dL for patients with CHD or diabetic patients with > or = 2 CHD risk factors. LDL-C is now calculated using the Myron-Sharron calculation, which is a validated novel method providing better accuracy than the Friedewald equation in the estimation of LDL-C. Myron SS et al. CINTIA. 2013;310(19): 5139-5909 (http://education.[employer]/faq/FWD557) CHOL/HDL RATIO 5.6(H) <5.0 (calc) [facility] NON-HDL CHOLESTEROL 188(H) <130 mg/dL (calc) [facility] Comment: For patients with diabetes plus 1 major ASCVD risk factor, treating to a non-HDL-C goal of <100 mg/dL (LDL-C of <70 mg/dL) is considered a therapeutic option. Test Performed at: [facility] [address] [place] [address] Reese Velarde MD Blood 05/27/2024 7:07 AM SENIOR EDUCATION SPECIALIST 05/27/2024 7:08 AM SENIOR EDUCATION SPECIALIST us Hari Gautam MD CHEMISTRY ORDERABLES Final Re sult [facility] [phone] [facility] [address] [facility] [place] [address] * COMPREHENSIVE METABOLIC PANEL (05/27/2024 7:07 AM SENIOR EDUCATION SPECIALIST) GLUCOSE 99 65 - 99 mg/dL [facility] Comment: Fasting reference interval BUN 15 7 - 25 mg/dL [facility] CREATININE 0.93 0.50 - 1.03 mg/dL [facility] GFR 75 > OR = 60 mL/min/1. 73m2 [facility] BUN/CREAT RATIO SEE NOTE: 6 - 22 (calc) [facility] Comment: Not Reported: BUN and Creatinine are within reference range. SODIUM 139 135 - 146 mmol/L [facility] POTASSIUM 4.2 3.5 - 5.3 mmol/L [facility] CHLORIDE 102 98 - 110 mmol/L [facility] CO2 30 20 - 32 mmol/L [facility] CALCIUM 9.0 8.6 - 10.4 mg/dL [facility] TOTAL PROTEIN 6.8 6.1 - 8.1 g/dL [facility] ALBUMIN 4.2 3.6 - 5.1 g/dL [facility] GLOBULIN 2.6 1.9 - 3.7 g/dL (calc) [facility] ALBUMIN/GLOBULIN RATIO 1.6 1.0 - 2.5 (calc) [facility] BILIRUBIN TOTAL 0.9 0.2 - 1.2 mg/dL [facility] ALKALINE PHOSPHATASE 57 37 - 153 U/L [facility] AST 12 10 - 35 U/L [facility] ALT 10 6 - 29 U/L [facility] Comment: Test Performed at: [facility] [address] [facility] [address] Reese Velarde MD Blood 05/27/2024 7:07 AM SENIOR EDUCATION SPECIALIST 05/27/2024 7:08 AM SENIOR EDUCATION SPECIALIST us Hari Gautam MD CHEMISTRY ORDERABLES Final Re sult [facility] [phone] [facility] [address] [place] [address] * MAMMO 3D MOE SCREEN BILAT W OR WO CAD (02/26/2024 5:28 PM SENIOR EDUCATION SPECIALIST) Anatomical Region Laterality Modality Breast Bilateral Mammography 02/26/2024 5:47 PM SENIOR EDUCATION SPECIALIST Impressions 02/27/2024 7:58 AM SENIOR EDUCATION SPECIALIST IMPRESSION: No suspicious findings to suggest malignancy in either breast. Annual mammography is recommended. OVERALL FINAL ASSESSMENT: BI-RADS CATEGORY 1: Negative. DICTATION LOCATION: [facility] Narrative 02/27/2024 7:58 AM SENIOR EDUCATION SPECIALIST BILATERAL SCREENING DIGITAL MAMMOGRAM WITH 3D TOMOSYNTHESIS AND CAD DATE: 02/26/2024 5:28 PM HISTORY: Routine screening. TECHNIQUE: Full-field digital craniocaudal and mediolateral oblique projections of both breasts were obtained. Low-dose full-field digital breast tomosynthesis examination was performed with 2D and 3D acquisitions. Examination is read in conjunction with computer aided detection. COMPARISON: 11/20/2021 and older. BREAST COMPOSITION: There are scattered areas of fibroglandular density. FINDINGS: No suspicious mass, suspicious microcalcifications, or architectural distortion is identified in either breast. Computer aided detection was used in the interpretation of this examination. Procedure Note Evelyne Diaz MD - 02/27/2024 BILATERAL SCREENING DIGITAL MAMMOGRAM WITH 3D TOMOSYNTHESIS AND CAD DATE: 02/26/2024 5:28 PM HISTORY: Routine screening. TECHNIQUE: Full-field digital craniocaudal and mediolateral oblique projections of both breasts were obtained. Low-dose full-field digital breast tomosynthesis examination was performed with 2D and 3D acquisitions. Examination is read in conjunction with computer aided detection. COMPARISON: 11/20/2021 and older. BREAST COMPOSITION: There are scattered areas of fibroglandular density. FINDINGS: No suspicious mass, suspicious microcalcifications, or architectural distortion is identified in either breast. Computer aided detection was used in the interpretation of this examination. IMPRESSION: No suspicious findings to suggest malignancy in either breast. Annual mammography is recommended. OVERALL FINAL ASSESSMENT: BI-RADS CATEGORY 1: Negative. DICTATION LOCATION: [facility] Faye Queen PRESERVATIVE FILLER MACHINE OPERATOR MAMMO ORDERABLES Final Result * COLONOSCOPY REPORT (10/30/2022 9:24 AM CDT) Narrative Procedure Note Natalya Fontaine MD - 10/30/2022 9:24 AM CDT [facility] Endoscopy Patient Name: Iris Guzman Procedure Date: 10/30/2022 Date of : 1975 Age: 47 Attending MD: Natalya Fontaine , , Procedure: Colonoscopy Indications: Screening for colorectal malignant neoplasm Providers: Natalya Fontaine Referring MD: Hari Gautam MD Medicines: Propofol per Anesthesia Procedure: Informed consent was obtained for the procedure, including moderate sedation after risks were discussed. Based on the pre-procedure assessment, including review of the patient's medical history, medications, allergies, and review of systems, the patient was deemed to be an appropriate candidate for sedation. A timeout was performed. Continuous ECG monitoring, pulse oximetry, blood pressure monitoring, and direct observation were performed. The Colonoscope was introduced through the anus and advanced to the cecum, identified by appendiceal orifice and ileocecal valve. The colonoscopy was performed without difficulty. The patient tolerated the procedure well. The quality of the bowel preparation was good. Estimated Blood Loss: Estimated blood loss was minimal. Findings: Two semi-sessile polyps were found in the sigmoid colon and ascending colon. The polyps were 4 to 9 mm in size. These polyps were removed with a cold snare. Resection and retrieval were complete. Multiple medium-mouthed diverticula were found in the sigmoid colon. The exam was otherwise without abnormality on direct and retroflexion views. Complications: No immediate complications. Impression: - Two 4 to 9 mm polyps in the sigmoid colon and in the ascending colon, removed with a cold snare. Resected and retrieved. - Diverticulosis in the sigmoid colon. - The examination was otherwise normal on direct and retroflexion views. Recommendation: - Discharge patient to home (with escort). - Patient has a contact number available for emergencies. The signs and symptoms of potential delayed complications were discussed with the patient. Return to normal activities tomorrow. Written discharge instructions were provided to the patient. - Resume previous diet. - Continue present medications. - Await pathology results. - Repeat colonoscopy in 5 years for surveillance. - Return to primary care physician as previously scheduled. Natalya Fontaine, 10/30/2022 9:24:30 AM This report has been signed electronically. Number of Addenda: 0 Procedure Date: 10/30/2022 8:50:[id number] [place] [address] Natalya Fontaine MD GI PROCEDURE ORDERABLE S Final Result from Last 3 Months or Most Recently Relevant to Health Maintenance Insurance [employer] [id number] Advance Directives For more information, please contact: [phone] * Full Code (Latest Code Status on File) Date Activated Date Inactivated Comments 10/30/2022 8:31 AM 10/30/2022 12:18 PM Care Teams Solution Specialist Relationship Specialty Start Date End Date Hari Gautam MD PCP - General Internal Medicine 09/05/14
--- OUTSIDE RECORDS SUMMARY | 2024-05-28 18:22 | XMS_ITS | Patient Health Summary ---
Author Organization [facility] Address [address] [place] [address] Care Team Providers Care Emergency Room Specialist Name Role Phone Hari Gautam MD Primary Care Provider [phone] Note from [facility],non-owned Affiliates and Associated Physician Practices is amultiple site organization consisting of ambulatory clinics and hospital sitesin [place], [place], [place] and [place]. This disclosure is being madepursuant to the Care Everywhere program and may not contain all information available regarding this patient. Last updated 18.[facility] Allergies * Contrast-Iodinated Agents For Ct/Other(Unknown) * Meloxicam(Unknown) * Penicillins(Unknown) * Progesterone(Unknown) Medications * Be aware that medications may not be up to date on this document. Alwaysverify current medications with the patient. * LORazepam (ATIVAN) 1 MG tablet(Started 06/20/2018) Take 1 tablet by mouth every 12 hours as needed for Anxiety Social History Tobacco Use Types Packs/Day Years [...] Comments Blood Pressure 150/100 06/20/2018 8:17 PM BIOSTATISTICS TEACHER Pulse 110 06/20/2018 2:56 PM BIOSTATISTICS TEACHER Temperature 36.7 C (98 F) 06/20/2018 2:56 PM BIOSTATISTICS TEACHER Respiratory Rate 20 06/20/2018 2:56 PM BIOSTATISTICS TEACHER Oxygen Saturation 96% 06/20/2018 10:30 PM BIOSTATISTICS TEACHER Inhaled Oxygen Concentration - - Weight 90.7 kg (200 lb) 06/20/2018 2:56 PM BIOSTATISTICS TEACHER Height 162.6 cm (5' 4 ) 06/20/2018 2:56 PM BIOSTATISTICS TEACHER Body Mass Index 34.33 06/20/2018 2:56 PM BIOSTATISTICS TEACHER Procedures * CARDIAC EKG ORDER(Performed 06/22/2018) * TROPONIN I(Performed 06/20/2018) * HCG URINE QUALITATIVE - POCT (IP) INTERFACED(Performed 06/20/2018) * URINE MICROSCOPIC ONLY REFLEX TO CULTURE(Performed 06/20/2018) * URINALYSIS REFLEX MICROSCOPIC REFLEX CULTURE(Performed 06/20/2018) * CULTURE URINE(Performed 06/20/2018) * HCG URINE QUAL POCT NOTIFICATION(Performed 06/20/2018) * CT HEAD WO CONTRAST(Performed 06/20/2018) Performed for Speech disturbance, unspecified type * LIPASE BLOOD(Performed 06/20/2018) * TROPONIN I(Performed 06/20/2018) * COMPREHENSIVE METABOLIC PANEL(Performed 06/20/2018) * CBC W AUTO DIFFERENTIAL(Performed 06/20/2018) * EKG 12-LEAD(Performed 06/20/2018) Performed for Diaphoresis Results * CARDIAC EKG ORDER (06/22/2018 9:20 PM BIOSTATISTICS TEACHER) Narrative 06/22/2018 9:20 PM BIOSTATISTICS TEACHER Ordered by an unspecified provider. Scanned Document CARDIAC SERVICES ORD ERABLES * TROPONIN I (06/20/2018 8:23 PM BIOSTATISTICS TEACHER) Only the most recent of2 resultswithin the time period is included. Troponin I <0.015 0.000 - 0.049 ng/mL 06/20/2018 9:19 PM BIOSTATISTICS TEACHER [facility] Blood BLOOD SPECIMEN / Unknown Venipuncture / Unknown 06/20/2018 8:23 PM BIOSTATISTICS TEACHER 06/20/2018 8:48 PM BIOSTATISTICS TEACHER Narrative [facility] - 06/20/2018 9:19 PM BIOSTATISTICS TEACHER Note: Diagnosis of myocardial infarction requires symptoms of ischemia or EKG changes of ischemia and Troponin I >99th of normal (0.05 ng/mL). Troponin should be drawn on initial assessment and 3-6 hours later as clinically indicated. Any condition resulting in myocardial cell damage can increase cardiac troponin levels. In addition to myocardial infarction, these include but are not limited to congestive heart failure (CHF), arrhythmia, myocarditis, and non-cardiac related causes such as pulmonary embolism, renal failure and sepsis. Griselda Flores APRN-CAMP COORDINATOR LAB - CHEMISTRY ORDERABLES Performing Organization Address [facility] Co de Phone Number [facility] [id number] [place] [address] [phone] * HCG URINE QUALITATIVE - POCT (IP) INTERFACED (06/20/2018 7:53 PM BIOSTATISTICS TEACHER) HCG Qual Urine Negative Negative 06/20/2018 7:57 PM BIOSTATISTICS TEACHER [facility] Urine URINE / Unknown 06/20/2018 7 :53 PM BIOSTATISTICS TEACHER 06/20/2018 7:57 PM BIOSTATISTICS TEACHER Harshil Cheatham DO LAB - POINT OF CARE ORDERABLES Performing Organization Address [facility] de Phone Number [facility] [address] [place] [phone] * (ABNORMAL) URINE MICROSCOPIC ONLY REFLEX TO CULTURE (06/20/2018 7:49 PM BIOSTATISTICS TEACHER) Reflex Status Culture to follow 06/20/2018 8:07 PM BIOSTATISTICS TEACHER [facility] RBC UA 6-10(A) None Seen, 0-2, 3-5 # /hpf 06/20/2018 8:07 PM BIOSTATISTICS TEACHER [facility] WBC UA 0-5 None Seen, 0-5 # /hpf 06/20/2018 8:07 PM BIOSTATISTICS TEACHER [facility] Bacteria UA None Seen None Seen 06/20/2018 8:07 PM BIOSTATISTICS TEACHER [facility] Squamous Epithelial Cells 6-10(A) None Seen, 0-2, 3-5 /hpf 06/20/2018 8:07 PM BIOSTATISTICS TEACHER [facility] Urine URINE SPECIMEN OBTAINED BY CLEAN CATCH PROCEDURE / Unknown Collection / Unknown 06/20/2018 7:49 PM BIOSTATISTICS TEACHER 06/20/2018 7:58 PM BIOSTATISTICS TEACHER Narrative [facility] - 06/20/2018 8:07 PM BIOSTATISTICS TEACHER Griselda Flores CUT OFF TENDER GLASS-CAMP COORDINATOR LAB - URINALYSIS ORDERABLES Performing Organization Address [facility] Co de Phone Number [facility] [id number] [place] [phone] * (ABNORMAL) URINALYSIS REFLEX MICROSCOPIC REFLEX CULTURE (06/20/2018 7:49 PM BIOSTATISTICS TEACHER) Color UA Straw Straw, Yellow 06/20/2018 8:05 PM [facility] Clarity UA Clear Clear 06/20/2018 8:05 PM [facility] Glucose UA Negative Negative 06/20/2018 8:05 PM [facility] Bilirubin UA Negative Negative 06/20/2018 8:05 PM [facility] Ketone UA 1+(A) Negative 06/20/2018 8:05 PM [facility] Specific [place] UA 1.010 1.005 - 1.030 06/20/2018 8:05 PM [facility] Blood UA 2+(A) Negative 06/20/2018 8:05 PM [facility] pH UA 7.0 5.0 - 8.0 pH 06/20/2018 8:05 PM [facility] Protein UA Negative Negative 06/20/2018 8:05 PM [facility] Urobilinogen UA Negative Negative mg/dL 06/20/2018 8:05 PM [facility] Nitrite UA Negative Negative 06/20/2018 8:05 PM [facility] Leukocyte UA Trace(A) Negative 06/20/2018 8:05 PM [facility] Urine Microscopy Urine microscopy to follow 06/20/2018 8:05 PM [facility] Reflex Status Culture to follow 06/20/2018 8:05 PM [facility] Urine URINE SPECIMEN OBTAINED BY CLEAN CATCH PROCEDURE / Unknown Collection / Unknown 06/20/2018 7:49 PM BIOSTATISTICS TEACHER 06/20/2018 7:58 PM BIOSTATISTICS TEACHER Narrative [facility] - 06/20/2018 8:05 PM BIOSTATISTICS TEACHER Griselda Flores CUT OFF TENDER GLASS-CAMP COORDINATOR LAB - URINALYSIS ORDERABLES [facility] [address] [place] [address] * CULTURE URINE (06/20/2018 7:49 PM BIOSTATISTICS TEACHER) Culture Urine 10,000-50,000 CFU/mL urogenital kyaw BARTOLO 06/22/2018 4:[address] [facility] MICROBIOLOGY Urine URINE SPECIMEN OBTAINED BY CLEAN CATCH PROCEDURE / Unknown Collection / Unknown 06/20/2018 7:49 PM BIOSTATISTICS TEACHER 06/20/2018 7:58 PM BIOSTATISTICS TEACHER Griselda Flores APRN-CAMP COORDINATOR LAB - MICROBIOLO GY ORDERABLES [facility] MICROBIOLOGY [address] [place] [address], [facility] [phone] * HCG URINE QUAL POCT NOTIFICATION (06/20/2018 7:48 PM BIOSTATISTICS TEACHER) Comment Notification Label Only - See Separate Report 06/20/2018 9:00 PM BIOSTATISTICS TEACHER [facility] Urine URINE / Unknown 06/20/2018 7 :48 PM BIOSTATISTICS TEACHER 06/20/2018 7:48 PM BIOSTATISTICS TEACHER Harshil Cheatham DO LAB - URINALYSIS ORD ERABLES Performing Organization Address [facility] Co de Phone Number [facility] [address] [place] [address] * CT HEAD WO CONTRAST (06/20/2018 5:45 PM BIOSTATISTICS TEACHER) Anatomical Region Laterality Modality Head Computed Tomogra phy 06/20/2018 5:51 PM BIOSTATISTICS TEACHER Impressions 06/20/2018 5:53 PM BIOSTATISTICS TEACHER No acute intracranial pathology. Reading Radiologist: Kuldeep Howell MD on 06/20/2018 at 5:53 PM Narrative 06/20/2018 5:[address] BRAIN NONCONTRAST CLINICAL INDICATION: Weakness. Nausea. Bilateral lower extremity heaviness with numbness in bilateral hands and feet. Muscle contractions and bilateral hands. TECHNIQUE: 5 mm images through the brain noncontrast. COMPARISON: None FINDINGS The ventricles, gyri and sulci are appropriate. There is no midline shift, mass, mass effect or acute intracranial hemorrhage. No acute cortical infarct is demonstrated. The calvarium is intact. The paranasal sinuses are clear. Procedure Note Kuldeep Howell MD - 06/20/2018 CT BRAIN NONCONTRAST CLINICAL INDICATION: Weakness. Nausea. Bilateral lower extremity heaviness with numbness in bilateral hands and feet. Muscle contractions and bilateral hands. TECHNIQUE: 5 mm images through the brain noncontrast. COMPARISON: None FINDINGS The ventricles, gyri and sulci are appropriate. There is no midline shift, mass, mass effect or acute intracranial hemorrhage. No acute cortical infarct is demonstrated. The calvarium is intact. The paranasal sinuses are clear. IMPRESSION No acute intracranial pathology. Reading Radiologist: Kuldeep Howell MD on 06/20/2018 at 5:53 PM [facility] * (ABNORMAL) CBC W AUTO DIFFERENTIAL (06/20/2018 3:27 PM BIOSTATISTICS TEACHER) WBC 11.6(H) 4.4 - 10.7 x10E9/L 06/20/2018 4:08 PM [facility] WBC Corrected x10E9/L 06/20/2018 4:08 PM [facility] RBC 4.81 3.80 - 5.20 x10E12/L 06/20/2018 4:08 PM [facility] Hemoglobin 14.4 12.0 - 15.6 gm/dL 06/20/2018 4:08 PM [facility] Hematocrit 43.6 35.9 - 45.5 % 06/20/2018 4:08 PM [facility] MCV 90.6 80.7 - 98.3 fl 06/20/2018 4:08 PM [facility] MCH 29.9 26.7 - 34.0 pg 06/20/2018 4:08 PM [facility] MCHC 33.0 30.8 - 35.9 gm/dL 06/20/2018 4:08 PM [facility] Platelet Count 310 153 - 416 x10E9/L 06/20/2018 4:08 PM [facility] RDW-CV 12.3 12.1 - 14.9 % 06/20/2018 4:08 PM [facility] MPV 10.4 9.4 - 12.9 fl 06/20/2018 4:08 PM [facility] Neutrophils % 78.7(H) 44.0 - 73.0 % 06/20/2018 4:08 PM [facility] Lymphocytes % 17.0(L) 20.0 - 43.0 % 06/20/2018 4:08 PM [facility] Monocytes % 3.4(L) 5.0 - 13.0 % 06/20/2018 4:08 PM [facility] Eosinophils % 0.1 0.0 - 6.0 % 06/20/2018 4:08 PM [facility] Basophils % 0.3 0.0 - 2.0 % 06/20/2018 4:08 PM [facility] Immature Granulocytes 0.5 0 - 1 % 06/20/2018 4:08 PM [facility] Neutrophil Absolute 9.15(H) 2.01 - 7.14 x10E9/L 06/20/2018 4:08 PM [facility] Lymphocytes Absolute 1.98 1.07 - 3.94 x10E9/L 06/20/2018 4:08 PM [facility] Monocytes Absolute 0.40 0.26 - 1.07 x10E9/L 06/20/2018 4:08 PM [facility] Eosinophils Absolute 0.01 0 - 0.47 x10E9/L 06/20/2018 4:08 PM [facility] Basophils Absolute 0.04 0 - 0.08 x10E9/L 06/20/2018 4:08 PM [facility] Immature Granulocytes Absolute 0.06 0.00 - 0.06 x10E9/L 06/20/2018 4:08 PM [facility] nRBC Auto 0 /100 WBC 06/20/2018 4:08 PM [facility] Blood BLOOD SPECIMEN / Unknown Venipuncture / Unknown 06/20/2018 3:27 PM BIOSTATISTICS TEACHER 06/20/2018 4:04 PM [facility] Griselda Flores CUT OFF TENDER GLASS-CAMP COORDINATOR LAB - HEMATOLOGY ORDERABLES [facility] [address] [place] [address] * (ABNORMAL) COMPREHENSIVE METABOLIC PANEL (06/20/2018 3:27 PM BIOSTATISTICS TEACHER) [facility] Glucose 125(H) 74 - 106 mg/dL 06/20/2018 4:24 PM [facility] Sodium 138 136 - 145 mmol/L 06/20/2018 4:24 PM [facility] Potassium 3.5 3.5 - 5.1 mmol/L 06/20/2018 4:24 PM [facility] Chloride 104 98 - 107 mmol/L 06/20/2018 4:24 PM [facility] CO2 26 22 - 31 mmol/L 06/20/2018 4:24 PM [facility] Calcium 8.9 8.5 - 10.1 mg/dL 06/20/2018 4:24 PM [facility] Anion Gap 8 8 - 16 mmol/L 06/20/2018 4:24 PM [facility] BUN 13 7 - 21 mg/dL 06/20/2018 4:24 PM [facility] Creatinine 0.87 0.50 - 1.30 mg/dL 06/20/2018 4:24 PM [facility] Alkaline Phosphatase 86 38 - 126 U/L 06/20/2018 4:24 PM [facility] ALT 22 13 - 61 U/L 06/20/2018 4:24 PM [facility] AST 13 5 - 40 U/L 06/20/2018 4:24 PM [facility] Protein Total 8.1 6.4 - 8.2 gm/dL 06/20/2018 4:24 PM [facility] Albumin 4.3 3.4 - 5.0 gm/dL 06/20/2018 4:24 PM [facility] Bilirubin Total 0.8 0.2 - 1.0 mg/dL 06/20/2018 4:24 PM [facility] eGFR by MDRD >60 >60 mL/min/1.7 3m2 06/20/2018 4:24 PM [facility] eGFR by MDRD >60 >60 mL/min/1.7 3m2 06/20/2018 4:24 PM [facility] Blood BLOOD SPECIMEN / Unknown Venipuncture / Unknown 06/20/2018 3:27 PM BIOSTATISTICS TEACHER 06/20/2018 4:04 PM [facility] Griselda Flores CUT OFF TENDER GLASS-CAMP COORDINATOR LAB - CHEMISTRY ORDERABLES [facility] [address] [place] [address] * LIPASE BLOOD (06/20/2018 3:27 PM [facility]) Lipase 148 73 - 393 U/L 06/20/2018 8:01 PM [facility] Blood BLOOD SPECIMEN / Unknown Venipuncture / Unknown 06/20/2018 3:27 PM BIOSTATISTICS TEACHER 06/20/2018 4:04 PM BIOSTATISTICS TEACHER Harshil Cheatham DO LAB - CHEMISTRY JD [facility] [address] [place] [address] * EKG 12-LEAD (06/20/2018 2:51 PM BIOSTATISTICS TEACHER) Ventricular Rate 93 BPM [facility] Atrial Rate 93 BPM [facility] P-R Interval 128 ms [facility] QRS Duration ms 86 ms [facility] Q-T Interval ms 382 ms [facility] QTC Calculation (Bezet) 474 ms [facility] Calculated P [place] 43 degrees [facility] Calculated R [place] -4 degrees [facility] Calculated T [place] 34 degrees [facility] Interpretation EKG Normal sinus rhythm with sinus arrhythmia Normal ECG No previous ECGs available Confirmed by MILLIE MCCORMACK, RAYMON ([id number]) on 06/26/2018 11:43:48 AM [facility] 06/20/2018 2:51 PM BIOSTATISTICS TEACHER 06/26/2018 11:43 AM BIOSTATISTICS TEACHER Griselda Flores APRN-CAMP COORDINATOR ECG ORDERABLES [facility] Care Teams Emergency Room Specialist Relationship Specialty Start Date End Date Hari Gautam MD PCP - General Internal Medicine 06/20/18
[2024-05-28 18:33] VITALS: BP 118/79; PULSE 63; RESP 18; TEMP 36.5; O2SAT 100
[2024-05-28 18:45] LABS: EDCOVIDSCREEN Positive (Negative)
[2024-05-28 18:45] LABS: EDINFLUASCREEN Negative (Negative); EDINFLUBSCREEN Negative (Negative)
--- NOTE | 2024-05-28 19:38 | ED.GENADULT ---
HPI - General Adult General Chief complaint: Upper Respiratory Infection Stated complaint: sinus issues Source: patient Mode of arrival: ambulatory Limitations: no limitations History of Present Illness HPI narrative: Patient presents for evaluation of sick symptoms. She indicates she was feeling ill with flu-like symptoms at the end of last month. Her symptoms improved. She had recurrence of her symptoms at the start of this week, which worsened two days ago. She reports sinus congestion, cough, fatigue, MCGOVERN and generalized body aches. She denies any fever, chills nausea, vomiting, diarrhea. 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 She does not smoke. Related Data Home Medications ?Medication ?Instructions ?Recorded ?Confirmed ?Last Taken ?Type B cplx 4-vit D3 1,750 unit-C 60 1 tablet PO DAILY 03/11/22 03/01/24 Unknown History mg-folic acid 1 mg-zinc 12.5 mg tablet amlodipine 2.5 mg tablet 2.5 mg PO DAILY 03/11/22 03/01/24 Unknown History bupropion HCl 75 mg tablet 75 mg PO DAILY 03/11/22 03/01/24 Unknown History fish [id number] C-vit E 2,000 1 g PO DAILY 03/11/22 03/01/24 Unknown History mg-650 mg-12 mg/2.5 g emulsion packt nebivolol 2.5 mg tablet 5 mg PO DAILY 03/11/22 03/01/24 Unknown History metformin 500 mg tablet,extended 500 mg PO DAILY 03/01/24 03/01/24 Unknown History release 24 hr Allergies Allergy/AdvReac Type Severity Reaction Status Date / Time iohexol (From contrast - CT, Allergy Severe Anaphylaxis Verified 05/28/24 18:39 X-RAY) meloxicam (From Mobic) Allergy Intermediate Swelling Verified 05/28/24 18:39 Penicillins Allergy Intermediate FACIAL Verified 05/28/24 18:39 SWELLING/HIVES lisinopril Allergy Mild Rash Verified 05/28/24 18:39 progesterone Allergy Mild RASH Verified 05/28/24 18:39 Review of Systems Review of Systems: CONSTITUTIONAL: Reports fatigue. Denies fever, chills, or sweats. EYES: Denies visual changes, redness, or discharge. ENT:Reports sinus congestion and drainage. CARDIOVASCULAR: Denies chest pain, palpitations, or edema. RESPIRATORY:Reports cough and MCGOVERN GASTROINTESTINAL: Denies abdominal pain, nausea, vomiting, or diarrhea. GENITOURINARY: Denies dysuria or hematuria. SKIN: Denies rash or itching. MUSCULOSKELETAL: Reports generalized body aches NEUROLOGIC: Reports headache. Denies numbness, dizziness, or weakness. PSYCHIATRIC: Denies anxiety or depression. [facility] Past Medical History Medical History Depression Urinary tract infection Abnormal uterine bleeding Tachycardia Migraine Hypertension Surgical History Surgical History History of appendectomy Family History Family History Other Diabetes mellitus Heart disease Hypertension Social History Social History Smoking status: Never smoker Alcohol intake: current Alcohol use details: Weekly alcohol consumption Exam Narrative: GENERAL: Well-appearing, well-nourished, and in no acute distress. HEAD: Normocephalic, atraumatic. EYES: PERRLA and EOMI. ENT: Nares clear, no rhinorrhea or epistaxis. Mucous membranes moist. Oropharynx without tonsillar hypertrophy exudate or other lesions. Bilateral TMs pearly wilcox nonbulging. There appears to be a white foreign body in the right ear canal adjacent to the tympanic membrane suspicious for tympanostomy tube NECK: Supple. No adenopathy or masses. No carotid bruits or JVD CHEST: Clear to auscultation. No respiratory distress. No wheezes rales or rhonchi HEART: Regular rate and rhythm. No murmur heard. Normal peripheral pulses. ABDOMEN: Soft, nontender, nondistended, normal active bowel sounds. EXTREMITIES: Normal range of motion. No edema. SKIN: Warm, dry, no rash. NEURO: No focal deficits. Alert and oriented x3. PSYCH: Normal mood and affect. Course Course Emergency Course: this is a 49-year-old female who presented for evaluation of sick symptoms. Her COVID test here is positive. Through shared decision making opted to forego Paxlovid due to rebound seen in some individuals who have taken therapy. Advised on increased hydration and supportive care measures. OTC agents for symptom management. it appears as though she has a tympanostomy tube in her right ear. She indicates another provide her told her that in the past but she is not aware of having the procedure done nor is her mother. Advise she follow up with ENT for further evaluation and treatment. she should go to the emergency department for worsening symptoms. Patient in agreement with plan of care. Level of Care: Express Care Visit Vital Signs Vital signs: Vital Signs Temperature 36.5 C 05/28/24 18:33 Pulse Rate 63 05/28/24 18:33 Respiratory Rate 18 05/28/24 18:33 Blood Pressure 118/79 05/28/24 18:33 Pulse Oximetry 100 05/28/24 18:33 Oxygen Delivery Room Air 05/28/24 18:33 Temperature 36.5 C 05/28/24 18:33 Pulse Rate 63 05/28/24 18:33 Respiratory Rate 18 05/28/24 18:33 Blood Pressure 118/79 05/28/24 18:33 Pulse Oximetry 100 05/28/24 18:33 Oxygen Delivery Room Air 05/28/24 18:33 Medical Decision Making Vital Signs Vital Signs: Vital Signs Temperature 36.5 C 05/28/24 18:33 Pulse Rate 63 05/28/24 18:33 Respiratory Rate 18 05/28/24 18:33 Blood Pressure 118/79 05/28/24 18:33 Pulse Oximetry 100 05/28/24 18:33 Oxygen Delivery Room Air 05/28/24 18:33 Temperature 36.5 C 05/28/24 18:33 Pulse Rate 63 05/28/24 18:33 Respiratory Rate 18 05/28/24 18:33 Blood Pressure 118/79 05/28/24 18:33 Pulse Oximetry 100 05/28/24 18:33 Oxygen Delivery Room Air 05/28/24 18:33 Lab Data Labs: Lab Results 05/28/24 05/28/24 Range/Units 18:43 18:44 POC Influenza A Ag Negative (Negative) POC Influenza B Ag Negative (Negative) POC SARS CoV-2 Ag Positive (Negative) Discharge Plan Discharge Clinical Impression: COVID Patient Disposition: Home, Self-Care Condition: Stable Instructions: Antibiotic Form, COVID-19 (Coronavirus Disease 2019) (ED) Patient Language: Japanese Prescriptions: No Action amlodipine 2.5 mg tablet 2.5 mg PO DAILY bupropion HCl 75 mg Tablet 75 mg PO DAILY nebivolol 2.5 mg Tablet 5 mg PO DAILY B cmplx 4-vit K9-H-qyybd-zinc 1,750-60-1-12.5 xggm-je-hy-mg Tablet 1 tablet PO DAILY fish mqi-iucxn-1-vit C-vit E 2,000-650-12 mg/2.5 gram Emulsion In Packet 1 g PO DAILY azithromycin 500 mg tablet 500 mg PO DAILY 5 Days Qty: 5 0RF metformin 500 mg tablet extended release 24 hr 500 mg PO DAILY doxycycline hyclate 100 mg capsule 100 mg PO BID 10 Days Qty: 20 0RF Follow-up/Referrals: Lotus,Hari Matson MD [Primary Care Provider] - Stand Alone Forms: Work/School Release IP Time of Disposition: 19:37
== END 2024-05-28 19:41 | disposition home or self-care (01) ==
PROVIDERS: Emergency Provider Nurse Practitioner; PCP Internal Medicine
DX: U07.1 COVID-19 (principal); I10 Essential (primary) hypertension; F32.A Depression, unspecified
CPT/HCPCS: 87426; 87804; 99212; G0463

== ENCOUNTER 2024-10-08 09:49 | Outpatient (CLI) | payer OTHER, SELFPAY ==
--- NOTE | ~2024-10-08 | MMUS_ITS ---
EXAMINATION: US breast RT limited, MM diagnostic dinorah RT w rima HISTORY: Palpable right breast lump. TECHNIQUE: Additional 3-D tomosynthesis images of the right breast were performed and synthetic 2-D i mages were generated. CAD analysis was submitted and interpreted. High resolution Limited right breas t ultrasound was performed. COMPARISON: Comparison to multiple prior studies sequentially, with oldest reviewed study dated 10/13. BREAST PARENCHYMAL COMPOSITION: Dense: The breasts are heterogeneously dense, which may obscure small masses FINDINGS: MAMMOGRAPHIC FINDINGS: There are no suspicious masses, calcifications or architectural distortion in the right breast to sug gest malignancy. ULTRASOUND: Limited right breast ultrasound: Normal heterogeneous echotexture without focal solid or cystic mass. IMPRESSION: 1. No evidence for malignancy in the right breast. 2. Routine yearly screening mammogram and regular clinical breast examination are recommended. BI-RADS Category 1: Negative Reviewed, dictated and finalized at location A. IMPRESSION: 1. No evidence for malignancy in the right breast. 2. Routine yearly screening mammogram and regular clinical breast examination a re recommended. BI-RADS Category 1: Negative
== END 2024-10-08 09:50 | disposition home or self-care (01) ==
PROVIDERS: PCP Internal Medicine; Visit Provider Obstetrics & Gynecology Gynecology
DX: N64.4 Mastodynia (principal)
CPT/HCPCS: 76642; 77061; 77065; G0279